=== PATIENT | female | born 1980 | race Two or more races ===

== ENCOUNTER 2020-01-07 14:07 | Outpatient (REF) | payer MEDICAID, SELFPAY | END 2020-01-07 14:08 | disposition home or self-care (01) | LOC: HO.LAB 14:07 | PROVIDERS: Visit Provider Internal Medicine | DX: Z20.828 Contact with and (suspected) exposure to other viral communicable diseases (principal) | CPT/HCPCS: U0003 ==

== ENCOUNTER 2020-11-20 09:57 | Outpatient (REF) | payer MEDICAID, SELFPAY | END 2020-11-20 09:58 | disposition home or self-care (01) | LOC: HO.LAB 09:57 | PROVIDERS: Visit Provider Internal Medicine | DX: Z20.822 Contact with and (suspected) exposure to COVID-19 (principal) | CPT/HCPCS: C9803; U0003; U0005 ==

== ENCOUNTER 2021-04-30 17:30 | Emergency (ER) | payer OTHER, SELFPAY ==
[2021-04-30 17:34] VITALS: BP 188/87; PULSE 67; RESP 18; TEMP 36.6; O2SAT 99; BMI 43.9
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
[2021-04-30 19:33] VITALS: BP 157/98; PULSE 70; RESP 18; TEMP 36.4; O2SAT 96
[2021-04-30] MEDS: Cyclobenzaprine HCl 10 MG TABLET PO (19:43)
[2021-04-30] MEDS: NaPROXEN 500 MG TABLET PO (19:43)
== END 2021-04-30 20:04 | disposition home or self-care (01) ==
PROVIDERS: Emergency Provider Internal Medicine
DX: S39.012A Strain of muscle, fascia and tendon of lower back, initial encounter (principal); V43.52XA Car driver injured in collision with other type car in traffic accident, initial encounter; Y93.9 Activity, unspecified; Y92.410 Unspecified street and highway as the place of occurrence of the external cause; Y99.9 Unspecified external cause status; Z79.899 Other long term (current) drug therapy
CPT/HCPCS: 99283

== ENCOUNTER 2022-02-02 12:27 | Emergency (ER) | payer MEDICAID, SELFPAY ==
--- NOTE | ~2022-02-02 | CT_ITS ---
EXAMINATION: CT HEAD WITHOUT CONTRAST CLINICAL INFORMATION: Headache COMPARISON: None TECHNIQUE: Contiguous axial imaging was performed from the skull base to vertex without intravenous administration of contrast. This CT examination was performed using dose optimization techniques as appropriate, variously including the following: *Automated exposure control *Adjustment of mA and/or kV according to patient size (this includes techniques or standardized protocols for targeted exams where dose is matched to indication/reason for exam; i.e. extremities or head) *Use of iterative reconstruction technique DLP: 733 mGy-cm FINDINGS: There is no midline shift. There is no mass effect. There is no hemorrhage. The basal cisterns appear patent. The posterior fossa is grossly within normal limits. There is no extra-axial collection. There are scattered areas of decreased attenuation in the white matter in this young patient.. This could represent white matter ischemic change Review of the bone windows does not demonstrate sinus disease. CT/CT head/brain wo IV con IMPRESSION: There is no acute finding here. There are however several areas of decreased attenuation throughout the white matter in this young patient. Recommend MRI to fully evaluate.
[2022-02-02 12:34] VITALS: BP 148/83; PULSE 73; RESP 20; TEMP 36.3; O2SAT 100; BMI 45.3
--- NOTE | 2022-02-02 13:07 | ED.HA ---
HPI - Headache General Chief Complaint: Headache Stated Complaint: CASTELLANO, Tingling L arm/hand Time Seen by Provider: 02/02/22 13:00 Source: patient Mode of arrival: ambulatory Limitations: no limitations History of Present Illness HPI Narrative: Robert is a 41 yo female with a PMHx of HTN who presents to the emergency department today with a CC of a posterior headache with left arm numbness and tingling that started around 10:45 am this morning. She says that she was at her child's school for a meeting when symptoms started suddenly. She says that her headache is throbbing in quality, it comes and goes, and she rates it as a 10/10. She says the pain is mostly towards the back of her head but radiates towards her temples. She has never had a headache like this before. She also endorses some nausea, shortness of breath and chest tightness, but denies chest pain, fevers, chills, vomiting, diarrhea, constipation, congestion, cough, or visual changes. She denies trauma. She admits that she has had symptoms like this many years ago which she thinks were the result of a panic attack. She came to the emergency department today because she was worried about a stroke. At this time the numbness and tingling has improved without intervention she has not taken anything for the pain. MD elicited complaint: headache Pertinent past history: hypertension Onset (ago): hour(s) (3) Onset description: suddenly Location: diffuse Severity: severe Pain scale (0-10): 10 Quality & Timing: throbbing Exacerbating factors: none Relieving factors: nothing Context: other (at child's school in meeting) Associated symptoms: nausea Related Data Previous Rx's Medication Instructions Recorded cyclobenzaprine 10 mg tablet 10 mg PO Q8H #20 tabs 04/30/21 naproxen 500 mg tablet (Naprosyn) 500 mg PO BID PRN pain #30 tabs 04/30/21 Allergies Allergy/AdvReac Type Severity Reaction Status Date / Time cherries Allergy Unknown Uncoded 05/14/19 00:00 Horses Allergy Unknown Uncoded 05/14/19 00:00 SHELLFISH Allergy Unknown HIVES Uncoded 11/21/19 18:07 shellfish Allergy Unknown Uncoded 05/14/19 00:00 Review of Systems Review of Systems: Review of systems: General: Patient denies any fever chills recent illness or falls Musculoskeletal: Denies back pain or body aches or other injuries HEENT: denies headache, runny nose, ear pain Respiratory: denies shortness of breath, cough Cardiovascular: no chest pain or palpitations : denies dysuria, frequency Abdomen: no nausea vomiting denies abdominal pain Extremities: no swelling, no pain Skin: no diaphoresis Yes all other systems are reviewed and are negative PMFSH Past Medical History Medical History No known health problems Social History Social History Advance Directives: No Physical Exam Vital Signs: Vital Signs: Last Vital Signs Temp 97.8 F 02/02/22 13:42 Pulse 72 02/02/22 13:42 Resp 19 02/02/22 13:42 BP 141/81 H 02/02/22 13:42 Pulse Ox 98 02/02/22 13:42 O2 Del Method 02/02/22 13:42 BMI result Body Mass Index 45.3 Neurological exam: CN II- XII tested. Patient is alert and oriented to person place and time. Patient has no dysphagia or dysarthia, denies good vision in all four vision perkins no nystagmus on exam, good strength to upper and lower extremities with normal reflexes to brachioradialis, wrist, patella and achilles. Negative romberg, good finger to nose and heel to razo. General: Well-appearing well-nourished in no signs of distress HEENT: Normocephalic atraumatic Neck: No signs of JVD, no masses no tenderness or lymphadenopathy Cardiovascular: Regular rate and rhythm Respiratory: Clear to auscultation bilaterally Abdomen: Soft nontender no masses Extremities: Normal pedal pulses no signs of edema Skin: Dry warm no rashes Back: No tenderness full ROM Medications Administered Discontinued Medications Generic Name Dose Route Start Last Admin Trade Name Freq PRN Reason Stop Dose Admin Diphenhydramine HCl 25 mg 02/02/22 14:47 02/02/22 14:54 Diphenhydramine Hcl 50 Mg/Ml Vial IVPUSH 02/02/22 14:48 25 mg ONCE ONE Administration Sodium Chloride 1,000 mls @ 999 mls/hr 02/02/22 13:15 02/02/22 13:26 Ns IV 02/02/22 14:15 999 mls/hr .Q1H1M LUI Administration Ketorolac Tromethamine 15 mg 02/02/22 13:09 02/02/22 13:26 Ketorolac Tromethamine 15 Mg/Ml Vial IVPUSH 02/02/22 13:10 15 mg ONCE ONE Administration Metoclopramide HCl 10 mg 02/02/22 14:47 02/02/22 14:53 Metoclopramide Hcl 10 Mg/2 Ml Vial IVPUSH 02/02/22 14:48 10 mg ONCE ONE Administration Ondansetron HCl 4 mg 02/02/22 14:35 02/02/22 14:53 Ondansetron Hcl 4 Mg/2 Ml Vial IVPUSH 02/02/22 14:36 4 mg ONCE ONE Administration MDM - Headache MDM Narrative Medical decision making narrative: 41 year old female with headache while at school with her daughter. She has had the same thing related to anxiety. I will give her tylenol toradol fluids and check a CT And labs. She looks otherwise well Patient with no relief with toradol fluids and was given reglan benadryl. Still no relief. Crying in the room CT and labs are all normal. I will try haldol, benadryl decadron and versed. 1600 I will sign out pending medication effect and disposition. Differential Diagnosis Differential diagnosis: Likely migraine, tension headache and subarachnoid hemorrhage Medical Records Attestation: I reviewed the patient's medical records. Lab Data Attestation: I reviewed the patient's lab results. Result diagrams: 02/02/22 13:22 02/02/22 13:22 Labs: Lab Results 02/02/22 02/02/22 Range/Units 13:22 13:22 WBC 7.0 (4.8-10.8) X10*3/uL RBC 4.74 (4.20-5.50) X10*6/uL Hgb 11.6 L (12.0-16.0) g/dl Hct 37.1 (37.0-47.0) % MCV 78.3 L (80.0-98.0) fL MCH 24.5 L (27.0-33.0) pg MCHC 31.3 (31.0-35.0) g/dl RDW 13.7 (11.0-16.0) % Plt Count 266 (160-400) X10*3/uL MPV 8.6 L (9.4-12.3) fL Immature Gran % (Auto) 0.1 (0.0-0.4) % Neut % (Auto) 62.6 (45-73) % Lymph % (Auto) 27.5 (20-40) % [place] % (Auto) 6.7 (2-11) % Eos % (Auto) 2.8 (0-4) % Baso % (Auto) 0.3 (0-2) % Lymph # (Auto) 1.9 (1.2-4.9) X10*3/uL [place] # (Auto) 0.5 (0.1-1.2) X10*3/uL Eos # (Auto) 0.2 (0.0-0.4) X10*3/uL Baso # (Auto) 0.0 (0.0-0.2) X10*3/uL Abs Immat Gran (auto) 0.01 (0.00-0.03) X10*3/uL Absolute Neuts (auto) 4.4 (2.0-8.3) x10*3/uL Absolute Nucleated RBC 0.000 (0.0-0.012) X10*3/uL Nucleated RBC % (auto) 0.0 (0.0-0.2) /100WBC Sodium 137 (135-145) mmol/L Potassium 3.9 (3.3-5.1) mmol/L Chloride 101 (96-108) mmol/L Carbon Dioxide 27 (22-29) mmol/L Anion Gap 13 (12-20) BUN 14 (9-16) mg/dL Creatinine 0.75 (0.5-1.4) mg/dL Estim Creat Clear Calc 127.2 Estimated GFR > 60 Random Glucose 93 (60-115) mg/dL Calcium 9.5 (8.4-10.2) mg/dL Discharge Plan Discharge Clinical Impression: Headache, Anxiety Patient Disposition: Still a Patient Instructions: Acute Headache (ED), Anxiety (ED) Additional Instructions: Please call to follow up with your doctor. If you have any other concerns please return to the ED. Prescriptions: No Action cyclobenzaprine 10 mg tablet 10 mg PO Q8H Qty: 20 0RF naproxen [Naprosyn] 500 mg tablet 500 mg PO BID PRN (Reason: pain) Qty: 30 0RF
--- NOTE | 2022-02-02 13:09 | ECG_ITS ---
Test Reason : PALPITATIONS Blood Pressure : / mmHG Vent. Rate : 070 BPM Atrial Rate : 070 BPM P-R Int : 156 ms QRS Dur : 100 ms QT Int : 404 ms P-R-T Axes : 051 033 029 degrees QTc Int : 436 ms Normal sinus rhythm Incomplete right bundle branch block Abnormal ECG No previous ECGs available Referred By: Bacilio Esteves Electronically Signed By:TERI BOWIE MD
[2022-02-02 13:26] LABS: MANUAL DIFF FLAG NO
[2022-02-02] MEDS: 0.9 % Sodium Chloride 1,000 ML 999 ML IV (13:26)
[2022-02-02] MEDS: Ketorolac Tromethamine 15 MG/ML VIAL IVPUSH (13:26)
[2022-02-02 13:28] LABS: Basophils Percent Auto 0.3 % (0-2); Eosinophils Absolute Auto 0.2 X10*3/uL (0.0-0.4); Eosinophils Percent Auto 2.8 % (0-4); Hematocrit 37.1 % (37.0-47.0); Hemoglobin 11.6 g/dl (12.0-16.0); Imm Gran Abs Auto 0.01 X10*3/uL (0.00-0.03); Imm Gran Pct Auto 0.1 % (0.0-0.4); Lymphocytes Absolute Auto 1.9 X10*3/uL (1.2-4.9); Lymphocytes Percent Auto 27.5 % (20-40); Mean Corpuscular HGB Conc 31.3 g/dl (31.0-35.0); Mean Corpuscular Hemoglobin 24.5 pg (27.0-33.0); Mean Corpuscular Volume 78.3 fL (80.0-98.0); Mean Platelet Volume 8.6 fL (9.4-12.3); Monocytes Absolute Auto 0.5 X10*3/uL (0.1-1.2); Monocytes Percent Auto 6.7 % (2-11); Neutrophils Absolute Auto 4.4 x10*3/uL (2.0-8.3); Neutrophils Percent Auto 62.6 % (45-73); Platelet Count 266 X10*3/uL (160-400); Red Blood Count 4.74 X10*6/uL (4.20-5.50); Red Cell Distribution Width 13.7 % (11.0-16.0)
[2022-02-02 13:42] VITALS: BP 141/81; PULSE 72; RESP 19; TEMP 36.6; O2SAT 98
[2022-02-02 13:42] LABS: Anion Gap 13 (12-20); Blood Urea Nitrogen 14 mg/dL (9-16); Calcium 9.5 mg/dL (8.4-10.2); Carbon Dioxide 27 mmol/L (22-29); Chloride 101 mmol/L (96-108); Creatinine Clr Calc Pharmacy 127.2; Estimated Glomerular Filt Rate > 60; Glucose Random 93 mg/dL (60-115); Potassium 3.9 mmol/L (3.3-5.1); Sodium 137 mmol/L (135-145)
[2022-02-02] MEDS: Metoclopramide HCl 10 MG/2 ML VIAL IVPUSH (14:53)
[2022-02-02] MEDS: ondansetron HCL 4 MG/2 ML VIAL IVPUSH (14:53)
[2022-02-02] MEDS: diphenhydrAMINE HCL 50 MG/ML VIAL 25 MG IVPUSH ×2 (14:54→15:51)
[2022-02-02] MEDS: dexAMETHasone sod phosphate 10 MG/ML VIAL IVPUSH (15:51)
[2022-02-02] MEDS: Haloperidol Lactate 5 MG/ML VIAL IVPUSH (15:52)
[2022-02-02] MEDS: Midazolam HCl/PF 2 MG/2 ML VIAL 1 MG IVPUSH (15:52)
[2022-02-02] MEDS: Acetaminophen 325 MG TABLET 650 MG PO (15:54)
[2022-02-02 16:15] VITALS: BP 169/77; PULSE 78; RESP 18; TEMP 36.8; O2SAT 98
== END 2022-02-02 17:43 | disposition still patient (30) ==
PROVIDERS: Emergency Provider Student in an Organized Health Care Education/Training Program; PCP Nurse Practitioner Family
DX: R51.9 Headache, unspecified (principal); F41.9 Anxiety disorder, unspecified
CPT/HCPCS: 36415; 70450; 80048; 85025; 93005; 96361; 96374; 96375; 96376; 99284; 99285; J1100; J1200; J1885; J2250; J2405; J2765

== ENCOUNTER 2022-03-14 11:22 | Outpatient (REF) | payer MEDICAID, SELFPAY ==
--- NOTE | ~2022-03-14 | XR_ITS ---
EXAMINATION: XR CHEST CLINICAL INFORMATION: Hypertension COMPARISON: None TECHNIQUE: 2 views of the chest were obtained. FINDINGS: The cardiomediastinal silhouette is within normal limits. The lungs are well expanded. Mild central vascular prominence. No overt pulmonary edema. There is no focal consolidation, or effusion. No pneumothorax. No acute osseous abnormality. XR/XR chest 2V IMPRESSION: Mild central vascular prominence without overt pulmonary edema.
== END 2022-03-14 11:23 | disposition home or self-care (01) ==
LOC: HO.XRAY 11:22
PROVIDERS: Visit Provider Emergency Medicine
DX: I10 Essential (primary) hypertension (principal)
CPT/HCPCS: 71046

== ENCOUNTER 2022-09-28 14:58 | Emergency (ER) | payer MEDICAID, SELFPAY ==
[2022-09-28 15:05] VITALS: BP 146/78
--- NOTE | 2022-09-28 15:06 | ED_ITS ---
HPI - General Adult General Chief complaint: Chest Pain Stated complaint: HIGH BP,HEADACH,SEEN RECENTLY @[facility] PER EMS Time Seen by Provider: 09/28/22 21:18 Source: patient Mode of arrival: EMS History of Present Illness HPI narrative: 41-year-old female with known high blood pressure presents via ambulance for her 2nd episode of chest pressure since this morning, she experienced similar chest pressure this morning while on her way to work denies that it had anything to do with her anxiety and had a complete workup at [facility] and was then discharged. Patient states that she then experienced chest pressure once again while at home resting and each time she did note that her blood pressure was very high . EN route EMS did give patient nitro and aspirin with good affect. Patient states she is recently had her losartan increased from 25-50 mg and has a follow-up primary care provider appointment on October 13. She denies any alcohol use or other prescription medications. Related Data Previous Rx's Medication Instructions Recorded cyclobenzaprine 10 mg tablet 10 mg PO Q8H #20 tabs 04/30/21 naproxen 500 mg tablet (Naprosyn) 500 mg PO BID PRN pain #30 tabs 04/30/21 Allergies Allergy/AdvReac Type Severity Reaction Status Date / Time cherries Allergy Unknown Unknown Uncoded 09/28/22 15:42 Horses Allergy Unknown Unknown Uncoded 09/28/22 15:42 SHELLFISH Allergy Unknown HIVES Uncoded 11/21/19 18:07 shellfish Allergy Unknown Unknown Uncoded 09/28/22 15:42 Review of Systems 2 Review of Systems: Pertinent positives and negatives as stated in HPI PMFSH Past Medical History Source: nursing notes reviewed Medical History No known health problems Social History Social History Alcohol intake: never Smoked in Last 30 Days: No Use of substances other than those prescribed or required for medical reasons: No Advance Directives: No Advance Directives Information Provided: No Patient : No Physical Exam ED Vital Signs: Vital Signs - 24 hr 09/28/22 15:42 09/28/22 20:31 Temperature 97.1 F 97.7 F Pulse Rate 69 62 Respiratory Rate 16 19 Blood Pressure 152/78 H 145/69 H Pulse Oximetry 96 99 Oxygen Delivery Method Room Air Room Air BMI result Body Mass Index 46.3 VITAL SIGNS: Reviewed. GENERAL: Elevated BMI, Well developed, well nourished, in no acute distress. HEAD: Normocephalic/atraumatic EYES: PERRLA, EOMI EARS: Ext canals without abnormality NOSE: Nares patent bilateral OROPHARYNX: no oral lesions noted, posterior pharynx clear NECK: Supple, no adenopathy LUNGS: Normal breath sounds. No adventitious sounds or accessory muscle use. S pO2<99> CARDIOVASCULAR: Regular rate and rhythm without noted murmurs, no JVD or lower extremity edema. ABDOMEN: Soft, non-tender, non-distended with bowel sounds. MUSCULOSKELETAL: No tenderness, deformities, or effusions noted on gross inspection. EXTREMITIES: No cyanosis, clubbing or edema. SKIN: Inspection of the skin reveals no rashes NEUROLOGIC: Alert and oriented x 4. Strength and sensation to light touch were grossly intact x 4, no facial asymmetry, no pronator drift, cranial nerves 2-12 are grossly intact.. Course Course Course Narrative: RME - 41 yo female with history of HTN on Losartan 50 mg daily (taken today) who presents to the ER via EMS who presents to the ER for acute onset of chest pressure and headache that started around 2pm. She was seen at [facility] ER this morning for the same associated with elevated BP. Had improvement in BP and normal labs so was discharged. BP for EMS 180/110. given ASA, nitro SL. EKG with incomplete RBBB and q-waves per EMS. Plan: EKG and labs Medical Decision Making Medical Decision Making MDM Narrative: 41-year-old female with history and clinical presentation, DDX: Musculoskeletal, anxiety, cardiopulmonary etiology. I reviewed all investigations and hematologic indices are consistent with chronically stable microcytic anemia without leukocytosis or left shift and there is no thrombocytopenia. Chemistry indices are grossly within normal limits without evidence of CATHI, electrolyte abnormalities or liver enzyme derangements. Serial troponins are undetectable and no acute ischemic changes on the EKG. Patient does have a significantly elevated BMI within underlying high blood pressure as well as history of some mild anxiety. My interpretation is that she has likely experienced a combination of anxiety but this is also potentially contributed by the use of NSAIDs. I did recommend to the patient that she increase her losartan to 75 mg a day and continue to monitor dietary salt use. Patient has a follow-up appoint with her primary care provider. Differential Diagnosis Differential Diagnoses: The differential diagnosis associated with the presentation includes Please see the discussion above Admission/Observation Consideration of admission/observation: Escalation of care including admission/observation considered Please see the discussion above Lab Data MDM Lab Attestation statement: I reviewed the patient's lab results. Please see the discussion above 09/28/22 15:41 09/28/22 15:41 Labs: Lab Results 09/28/22 09/28/22 09/28/22 Range/Units 15:41 15:41 15:41 WBC 7.0 (4.8-10.8) X10*3/uL RBC 4.40 (4.20-5.50) X10*6/uL Hgb 10.8 L (12.0-16.0) g/dl Hct 35.1 L (37.0-47.0) % MCV 79.8 L (80.0-98.0) fL MCH 24.5 L (27.0-33.0) pg MCHC 30.8 L (31.0-35.0) g/dl RDW 13.2 (11.0-16.0) % Plt Count 297 (160-400) X10*3/uL MPV 9.2 L (9.4-12.3) fL Immature Gran % (Auto) 0.4 (0.0-0.4) % Neut % (Auto) 62.6 (45-73) % Lymph % (Auto) 28.1 (20-40) % Lucas % (Auto) 5.9 (2-11) % Eos % (Auto) 2.4 (0-4) % Baso % (Auto) 0.6 (0-2) % Lymph # (Auto) 2.0 (1.2-4.9) X10*3/uL Lucas # (Auto) 0.4 (0.1-1.2) X10*3/uL Eos # (Auto) 0.2 (0.0-0.4) X10*3/uL Baso # (Auto) 0.0 (0.0-0.2) X10*3/uL Abs Immat Gran (auto) 0.03 (0.00-0.03) X10*3/uL Absolute Neuts (auto) 4.4 (2.0-8.3) x10*3/uL Absolute Nucleated RBC 0.000 (0.0-0.012) X10*3/uL Nucleated RBC % (auto) 0.0 (0.0-0.2) /100WBC Sodium 141 (135-145) mmol/L Potassium 3.8 (3.3-5.1) mmol/L Chloride 107 (96-108) mmol/L Carbon Dioxide 25 (22-29) mmol/L Anion Gap 13 (12-20) BUN 11 (9-16) mg/dL Creatinine 0.79 (0.5-1.4) mg/dL Estim Creat Clear Calc 122.1 Estimated GFR > 60 Random Glucose 107 (60-115) mg/dL Calcium 9.8 (8.4-10.2) mg/dL Magnesium 2.0 (1.6-2.6) mg/dL Total Bilirubin 0.5 (0.0-1.0) mg/dL Direct Bilirubin 0.1 (0.0-0.5) mg/dL AST 13 (5-31) U/L ALT 12 (0-31) U/L Alkaline Phosphatase 85 (39-117) U/L Troponin I High Sens < 2.7 (<3.5-17.0) ng/L Total Protein 7.0 (6.5-8.0) g/dL Albumin 3.9 (3.5-5.0) g/dL 09/28/22 Range/Units 19:42 WBC (4.8-10.8) X10*3/uL RBC (4.20-5.50) X10*6/uL Hgb (12.0-16.0) g/dl Hct (37.0-47.0) % MCV (80.0-98.0) fL MCH (27.0-33.0) pg MCHC (31.0-35.0) g/dl RDW (11.0-16.0) % Plt Count (160-400) X10*3/uL MPV (9.4-12.3) fL Immature Gran % (Auto) (0.0-0.4) % Neut % (Auto) (45-73) % Lymph % (Auto) (20-40) % Lucas % (Auto) (2-11) % Eos % (Auto) (0-4) % Baso % (Auto) (0-2) % Lymph # (Auto) (1.2-4.9) X10*3/uL Lucas # (Auto) (0.1-1.2) X10*3/uL Eos # (Auto) (0.0-0.4) X10*3/uL Baso # (Auto) (0.0-0.2) X10*3/uL Abs Immat Gran (auto) (0.00-0.03) X10*3/uL Absolute Neuts (auto) (2.0-8.3) x10*3/uL Absolute Nucleated RBC (0.0-0.012) X10*3/uL Nucleated RBC % (auto) (0.0-0.2) /100WBC Sodium (135-145) mmol/L Potassium (3.3-5.1) mmol/L Chloride (96-108) mmol/L Carbon Dioxide (22-29) mmol/L Anion Gap (12-20) BUN (9-16) mg/dL Creatinine (0.5-1.4) mg/dL Estim Creat Clear Calc Estimated GFR Random Glucose (60-115) mg/dL Calcium (8.4-10.2) mg/dL Magnesium (1.6-2.6) mg/dL Total Bilirubin (0.0-1.0) mg/dL Direct Bilirubin (0.0-0.5) mg/dL AST (5-31) U/L ALT (0-31) U/L Alkaline Phosphatase (39-117) U/L Troponin I High Sens < 2.7 (<3.5-17.0) ng/L Total Protein (6.5-8.0) g/dL Albumin (3.5-5.0) g/dL Independent Interpretation I performed an independent interpretation of an: EKG Interpretation: Normal sinus rhythm, HR-75, no STEMI, [place]/QRS/QTC is within normal limits External Record Review External record reviewed: Outpatient record and Prior outpatient labs Chronic Conditions Patient?s care impacted by: Hypertension Discharge Plan Discharge Clinical Impression: Chest pain, Uncontrolled hypertension Patient Disposition: Home, Self-Care Instructions: Chest Pain (ED), DASH Eating Plan (ED), Hypertension (ED) Additional Instructions: 1. Reanude todos los medicamentos caseros seg?n lo recetado, aumente diaz losart?n de 50 mg diarios a 75 mg diarios. 2. Es importante que se d? cuenta de que el ibuprofeno, Motrin, Aleve, Naprosyn pueden aumentar diaz presi?n arterial y deben evitarse cuando sea posible. 3. Seguimiento con diaz proveedor de atenci?n primaria. Regrese a la segun de emergencias si los s?ntomas empeoran. 1. Resume all home medications as prescribed, increase your losartan from 50 mg daily to 75 mg daily. 2. It is important for you to realize that ibuprofen, Motrin, Aleve, Naprosyn can increase your blood pressure and should be avoided when possible. 3. Follow-up with your primary care provider. Return to the ER for any worsening symptoms. Prescriptions: No Action cyclobenzaprine 10 mg tablet 10 mg PO Q8H Qty: 20 0RF naproxen [Naprosyn] 500 mg tablet 500 mg PO BID PRN (Reason: pain) Qty: 30 0RF Referrals: [facility] [Primary Care Provider] - Print Language: Kyrgyz
--- NOTE | 2022-09-28 15:07 | ECG_ITS ---
Test Reason : HYPERTENSION Blood Pressure : / mmHG Vent. Rate : 075 BPM Atrial Rate : 075 BPM P-R Int : 150 ms QRS Dur : 094 ms QT Int : 384 ms P-R-T Axes : 029 026 036 degrees QTc Int : 428 ms Normal sinus rhythm Normal ECG When compared to the previous EKG of No significant changes seen Referred By: Generic ED Physician Electronically Signed By:TONIO WANG MD
[2022-09-28 15:42] VITALS: BP 152/78; PULSE 69; RESP 16; TEMP 36.2; O2SAT 96; BMI 46.3
[2022-09-28 15:47] LABS: MANUAL DIFF FLAG NO
[2022-09-28 15:57] LABS: Basophils Percent Auto 0.6 % (0-2); Eosinophils Absolute Auto 0.2 X10*3/uL (0.0-0.4); Eosinophils Percent Auto 2.4 % (0-4); Hematocrit 35.1 % (37.0-47.0); Hemoglobin 10.8 g/dl (12.0-16.0); Imm Gran Abs Auto 0.03 X10*3/uL (0.00-0.03); Imm Gran Pct Auto 0.4 % (0.0-0.4); Lymphocytes Percent Auto 28.1 % (20-40); Mean Corpuscular HGB Conc 30.8 g/dl (31.0-35.0); Mean Corpuscular Hemoglobin 24.5 pg (27.0-33.0); Mean Corpuscular Volume 79.8 fL (80.0-98.0); Mean Platelet Volume 9.2 fL (9.4-12.3); Monocytes Absolute Auto 0.4 X10*3/uL (0.1-1.2); Monocytes Percent Auto 5.9 % (2-11); Neutrophils Absolute Auto 4.4 x10*3/uL (2.0-8.3); Neutrophils Percent Auto 62.6 % (45-73); Platelet Count 297 X10*3/uL (160-400); Red Cell Distribution Width 13.2 % (11.0-16.0)
[2022-09-28 16:49] LABS: Troponin-I High Sensitivity < 2.7 ng/L (<3.5-17.0)
[2022-09-28 16:52] LABS: Alanine Aminotransferase 12 U/L (0-31); Albumin Level 3.9 g/dL (3.5-5.0); Alkaline Phosphatase 85 U/L (39-117); Anion Gap 13 (12-20); Aspartate Amino Transferase 13 U/L (5-31); Bilirubin Direct 0.1 mg/dL (0.0-0.5); Bilirubin Total 0.5 mg/dL (0.0-1.0); Blood Urea Nitrogen 11 mg/dL (9-16); Calcium 9.8 mg/dL (8.4-10.2); Carbon Dioxide 25 mmol/L (22-29); Chloride 107 mmol/L (96-108); Creatinine Clr Calc Pharmacy 122.1; Estimated Glomerular Filt Rate > 60; Glucose Random 107 mg/dL (60-115); Potassium 3.8 mmol/L (3.3-5.1); Sodium 141 mmol/L (135-145)
[2022-09-28 20:22] LABS: Troponin-I High Sensitivity < 2.7 ng/L (<3.5-17.0)
[2022-09-28 20:31] VITALS: BP 145/69; PULSE 62; RESP 19; TEMP 36.5; O2SAT 99
== END 2022-09-28 22:37 | disposition home or self-care (01) ==
PROVIDERS: Physician Assistant; Emergency Provider Student in an Organized Health Care Education/Training Program
DX: R07.9 Chest pain, unspecified (principal); I10 Essential (primary) hypertension
CPT/HCPCS: 36415; 80048; 80076; 83735; 84484; 85025; 93005; 99283; 99285

== ENCOUNTER → 2022-09-28 15:07 | Outpatient (BNV) | payer MEDICAID, SELFPAY | PROVIDERS: Emergency Provider Student in an Organized Health Care Education/Training Program; Visit Provider Internal Medicine Cardiovascular Disease | DX: I10 Essential (primary) hypertension (principal) | CPT/HCPCS: 93010 ==

== ENCOUNTER 2022-10-03 14:54 | Emergency (ER) | payer MEDICAID, SELFPAY ==
--- NOTE | ~2022-10-03 | XR_ITS ---
EXAMINATION: XR CHEST CLINICAL INFORMATION: Chest pain COMPARISON: Prior chest March 2022 TECHNIQUE: Frontal view of the chest was obtained. FINDINGS: No significant abnormality is noted involving the heart, lungs, mediastinum, bony thorax or soft tissues. XR/XR chest 1V IMPRESSION: Unremarkable examination.
--- NOTE | 2022-10-03 14:59 | ECG_ITS ---
Test Reason : CHEST PRESSURE Blood Pressure : / mmHG Vent. Rate : 074 BPM Atrial Rate : 074 BPM P-R Int : 152 ms QRS Dur : 096 ms QT Int : 376 ms P-R-T Axes : 043 028 026 degrees QTc Int : 417 ms Normal sinus rhythm with sinus arrhythmia Possible Left atrial enlargement RSR' or QR pattern in V1 suggests right ventricular conduction delay Borderline ECG When compared with ECG of 28-SEP-2022 15:25, No significant change was found Referred By: Vicki Molina Electronically Signed By:BRENDAN ROLDAN
--- NOTE | 2022-10-03 15:03 | ED.GENADULT ---
HPI - General Adult General Chief complaint: Chest Pain Stated complaint: chest pressure r hand numbness Time Seen by Provider: 10/03/22 23:25 Source: patient, RN notes reviewed and old records reviewed Mode of arrival: ambulatory Limitations: no limitations History of Present Illness HPI narrative: 41-year-old female with past medical history significant for hypertension, obesity presents for evaluation of chest pain. Patient reports that she was on her way home from work when she started to feel pressure in her chest, feel like her heart was racing and numbness in her right hand. Patient was seen here on 09/28/2022 for similar complaints. It was felt that her symptoms were at least partially related to anxiety The patient reports that this feels similar and the both and says the patient was at or leaving work when her symptoms started She also reports that she has 2 younger children at home and 1 is autistic which makes her stress test well She denies any history of coronary artery disease The patient reports her symptoms lasted a few hours before resolving Related Data Previous Rx's Medication Instructions Recorded cyclobenzaprine 10 mg tablet 10 mg PO Q8H #20 tabs 04/30/21 naproxen 500 mg tablet (Naprosyn) 500 mg PO BID PRN pain #30 tabs 04/30/21 hydroxyzine HCl 25 mg tablet 25 mg PO TID PRN anxiety #15 tabs 10/03/22 Allergies Allergy/AdvReac Type Severity Reaction Status Date / Time cherries Allergy Unknown Unknown Uncoded 09/28/22 15:42 Horses Allergy Unknown Unknown Uncoded 09/28/22 15:42 SHELLFISH Allergy Unknown HIVES Uncoded 11/21/19 18:07 shellfish Allergy Unknown Unknown Uncoded 09/28/22 15:42 Review of Systems Constitutional: Constitutional: Reports as per HPI, Denies chills, Denies fever(s) and Denies headache(s) ENT: Denies headache(s) Cardiovascular: Cardiovascular: Reports chest pain, Reports rapid heart rate and Reports dyspnea Respiratory: Respiratory: Denies cough and Reports dyspnea Gastrointestinal: Gastrointestinal: Denies abdominal pain, Denies constipation and Denies vomiting Genitourinary: Genitourinary: Denies dysuria Musculoskeletal: Musculoskeletal: Reports numbness Neurologic: Denies headache(s), Denies focal weakness and Reports numbness PMFSH Past Medical History Medical History No known health problems Social History Social History Alcohol intake: never Advance Directives: No Advance Directives Information Provided: Yes Physical Exam ED Vital Signs: Vital Signs - 24 hr 10/03/22 15:56 10/03/22 23:28 Temperature 98.1 F Pulse Rate 85 67 Respiratory Rate 18 18 Blood Pressure 132/77 134/77 Pulse Oximetry 98 98 Oxygen Delivery Method Room Air Room Air BMI result Body Mass Index 45.4 Const General: healthy appearing, comfortable, no acute distress, alert and awake Nutritional Appearance: well nourished Orientation/consciousness: patient oriented x3 HENMT Head: Yes normocephalic and Yes atraumatic Eyes Eyelids: Yes eyelids normal Conjunctivae: conjunctivae normal Sclerae: sclerae normal Corneas: corneas normal Pupils: Equal, round and reactive pupils present EOM: EOMs intact bilaterally Neck Neck: Yes full ROM Resp Effort & Inspection: normal respiratory effort, able to speak in complete sentences, no audible wheezes and not labored Auscultation: clear to auscultation bilaterally Cardio Rate: regular rate Rhythm: regular rhythm Skin General skin exam: no rashes or lesions noted and elasticity normal Neuro General: patient oriented x3 Cranial nerves: Yes Equal, round and reactive pupils present and Yes Bilaterally intact EOM present Cognition (Neuro): normal cognition Extrem Other: Moving all extremities well without any obvious deformities Course Course Course Narrative: This is an RME: Additional HPI, ROS, PE not included below will be deferred to primary provider. 41-year-old female presents with substernal chest pain with associated right arm numbness and tingling for the past few hours, pain started at work while she was on break. Reports pain is severe. With some associated shortness of breath. Patient reports a similar episode like this last Monday. Patient denies fevers, chills, sick contacts, nausea, vomiting, abdominal pain. No recent travel, nonsmoker, not on control. PERC - Plan EKG, labs Medical Decision Making Medical Decision Making MDM Narrative: This is the patient's 2nd visit in the last 2 weeks for similar complaints. She again had a full workup including labs, chest x-ray, EKG all which was unremarkable. The patient is currently asymptomatic, vital signs are stable. I had a lengthy discussion the patient today agree the patient's symptoms are likely attributed to anxiety. Will try the patient on p.r.n. hydroxyzine and she reports that she has follow-up with her doctor in 10 days Differential Diagnosis Differential Diagnoses: The differential diagnosis associated with the presentation includes Anxiety Chest pain PE less likely Plan pneumonia Bronchitis Viral syndrome Admission/Observation Consideration of admission/observation: Escalation of care including admission/observation considered Patient's 2nd visit for chest pain, however her EKG was unchanged, troponin is still negative, vital signs remained stable, therefore admission not warranted at this time Lab Data MDM Lab Attestation statement: I reviewed the patient's lab results. No leukocytosis or left shift,. Very mild anemia with a hemoglobin 11.7 hematocrit 37.6. Patient's MCV just below normal, so is technically a microcytic anemia. No significant electrolyte or chemistry abnormalities. Troponin negative 10/03/22 16:37 10/03/22 16:37 Labs: Lab Results 10/03/22 10/03/22 10/03/22 Range/Units 16:37 16:37 16:38 WBC 9.3 (4.8-10.8) X10*3/uL RBC 4.73 (4.20-5.50) X10*6/uL Hgb 11.7 L (12.0-16.0) g/dl Hct 37.6 (37.0-47.0) % MCV 79.5 L (80.0-98.0) fL MCH 24.7 L (27.0-33.0) pg MCHC 31.1 (31.0-35.0) g/dl RDW 13.2 (11.0-16.0) % Plt Count 334 (160-400) X10*3/uL MPV 8.9 L (9.4-12.3) fL Immature Gran % (Auto) 0.2 (0.0-0.4) % Neut % (Auto) 67.2 (45-73) % Lymph % (Auto) 26.7 (20-40) % [place] % (Auto) 4.0 (2-11) % Eos % (Auto) 1.5 (0-4) % Baso % (Auto) 0.4 (0-2) % Lymph # (Auto) 2.5 (1.2-4.9) X10*3/uL [place] # (Auto) 0.4 (0.1-1.2) X10*3/uL Eos # (Auto) 0.1 (0.0-0.4) X10*3/uL Baso # (Auto) 0.0 (0.0-0.2) X10*3/uL Abs Immat Gran (auto) 0.02 (0.00-0.03) X10*3/uL Absolute Neuts (auto) 6.3 (2.0-8.3) x10*3/uL Absolute Nucleated RBC 0.000 (0.0-0.012) X10*3/uL Nucleated RBC % (auto) 0.0 (0.0-0.2) /100WBC Sodium 140 (135-145) mmol/L Potassium 3.8 (3.3-5.1) mmol/L Chloride 105 (96-108) mmol/L Carbon Dioxide 24 (22-29) mmol/L Anion Gap 15 (12-20) BUN 14 (9-16) mg/dL Creatinine 0.81 (0.5-1.4) mg/dL Estim Creat Clear Calc 117.8 Estimated GFR > 60 Random Glucose 112 (60-115) mg/dL Calcium 10.2 (8.4-10.2) mg/dL Magnesium 1.9 (1.6-2.6) mg/dL Total Bilirubin 0.8 (0.0-1.0) mg/dL AST 16 (5-31) U/L ALT 16 (0-31) U/L Alkaline Phosphatase 95 (39-117) U/L Troponin I High Sens < 2.7 (<3.5-17.0) ng/L B-Natriuretic Peptide (<100) pg/mL Total Protein 8.0 (6.5-8.0) g/dL Albumin 4.4 (3.5-5.0) g/dL 10/03/22 Range/Units 16:38 WBC (4.8-10.8) X10*3/uL RBC (4.20-5.50) X10*6/uL Hgb (12.0-16.0) g/dl Hct (37.0-47.0) % MCV (80.0-98.0) fL MCH (27.0-33.0) pg MCHC (31.0-35.0) g/dl RDW (11.0-16.0) % Plt Count (160-400) X10*3/uL MPV (9.4-12.3) fL Immature Gran % (Auto) (0.0-0.4) % Neut % (Auto) (45-73) % Lymph % (Auto) (20-40) % [place] % (Auto) (2-11) % Eos % (Auto) (0-4) % Baso % (Auto) (0-2) % Lymph # (Auto) (1.2-4.9) X10*3/uL [place] # (Auto) (0.1-1.2) X10*3/uL Eos # (Auto) (0.0-0.4) X10*3/uL Baso # (Auto) (0.0-0.2) X10*3/uL Abs Immat Gran (auto) (0.00-0.03) X10*3/uL Absolute Neuts (auto) (2.0-8.3) x10*3/uL Absolute Nucleated RBC (0.0-0.012) X10*3/uL Nucleated RBC % (auto) (0.0-0.2) /100WBC Sodium (135-145) mmol/L Potassium (3.3-5.1) mmol/L Chloride (96-108) mmol/L Carbon Dioxide (22-29) mmol/L Anion Gap (12-20) BUN (9-16) mg/dL Creatinine (0.5-1.4) mg/dL Estim Creat Clear Calc Estimated GFR Random Glucose (60-115) mg/dL Calcium (8.4-10.2) mg/dL Magnesium (1.6-2.6) mg/dL Total Bilirubin (0.0-1.0) mg/dL AST (5-31) U/L ALT (0-31) U/L Alkaline Phosphatase (39-117) U/L Troponin I High Sens (<3.5-17.0) ng/L B-Natriuretic Peptide < 10 (<100) pg/mL Total Protein (6.5-8.0) g/dL Albumin (3.5-5.0) g/dL Independent Interpretation I performed an independent interpretation of an: EKG and Plain X-Ray (No acute infiltrates) Interpretation: Sinus rhythm with a rate of 74 beats per minute. No significant change when compared to previous from 5 days ago Radiology Impression Discussion of test interpretation with radiology: I have reviewed the radiologist's reading. Radiologist Impression: Unremarkable chest x-ray Discharge Plan Discharge Clinical Impression: Chest pain, Anxiety Patient Disposition: Home, Self-Care Instructions: Anxiety (ED) Additional Instructions: Workup in the emergency department today was again reassuring Follow-up with your primary doctor You may take hydroxyzine as needed for any further anxiety symptoms Return for new or worsening symptoms Prescriptions: New hydroxyzine HCl 25 mg tablet 25 mg PO TID PRN (Reason: anxiety) Qty: 15 0RF No Action cyclobenzaprine 10 mg tablet 10 mg PO Q8H Qty: 20 0RF naproxen [Naprosyn] 500 mg tablet 500 mg PO BID PRN (Reason: pain) Qty: 30 0RF
[2022-10-03 15:56] VITALS: BP 132/77; PULSE 85; RESP 18; TEMP 36.7; O2SAT 98; BMI 45.4
[2022-10-03 16:43] LABS: MANUAL DIFF FLAG NO
[2022-10-03 16:47] LABS: Basophils Percent Auto 0.4 % (0-2); Eosinophils Absolute Auto 0.1 X10*3/uL (0.0-0.4); Eosinophils Percent Auto 1.5 % (0-4); Hematocrit 37.6 % (37.0-47.0); Hemoglobin 11.7 g/dl (12.0-16.0); Imm Gran Abs Auto 0.02 X10*3/uL (0.00-0.03); Imm Gran Pct Auto 0.2 % (0.0-0.4); Lymphocytes Absolute Auto 2.5 X10*3/uL (1.2-4.9); Lymphocytes Percent Auto 26.7 % (20-40); Mean Corpuscular HGB Conc 31.1 g/dl (31.0-35.0); Mean Corpuscular Hemoglobin 24.7 pg (27.0-33.0); Mean Corpuscular Volume 79.5 fL (80.0-98.0); Mean Platelet Volume 8.9 fL (9.4-12.3); Monocytes Absolute Auto 0.4 X10*3/uL (0.1-1.2); Neutrophils Absolute Auto 6.3 x10*3/uL (2.0-8.3); Neutrophils Percent Auto 67.2 % (45-73); Platelet Count 334 X10*3/uL (160-400); Red Blood Count 4.73 X10*6/uL (4.20-5.50); Red Cell Distribution Width 13.2 % (11.0-16.0); White Blood Count 9.3 X10*3/uL (4.8-10.8)
[2022-10-03 17:01] LABS: Alanine Aminotransferase 16 U/L (0-31); Albumin Level 4.4 g/dL (3.5-5.0); Alkaline Phosphatase 95 U/L (39-117); Anion Gap 15 (12-20); Aspartate Amino Transferase 16 U/L (5-31); Bilirubin Total 0.8 mg/dL (0.0-1.0); Blood Urea Nitrogen 14 mg/dL (9-16); Calcium 10.2 mg/dL (8.4-10.2); Carbon Dioxide 24 mmol/L (22-29); Chloride 105 mmol/L (96-108); Creatinine Clr Calc Pharmacy 117.8; Estimated Glomerular Filt Rate > 60; Glucose Random 112 mg/dL (60-115); Magnesium 1.9 mg/dL (1.6-2.6); Potassium 3.8 mmol/L (3.3-5.1); Sodium 140 mmol/L (135-145)
[2022-10-03 17:07] LABS: B Type Natriuretic Peptide < 10 pg/mL (<100)
[2022-10-03 17:18] LABS: Troponin-I High Sensitivity < 2.7 ng/L (<3.5-17.0)
[2022-10-03 23:28] VITALS: BP 134/77; PULSE 67; RESP 18; O2SAT 98
[2022-10-03 23:49] VITALS: BP 117/71; PULSE 77; RESP 17; TEMP 36.6; O2SAT 96
== END 2022-10-03 23:53 | disposition home or self-care (01) ==
PROVIDERS: Physician Assistant; Emergency Provider Emergency Medicine
DX: R07.9 Chest pain, unspecified (principal); F41.9 Anxiety disorder, unspecified; R06.00 Dyspnea, unspecified; I10 Essential (primary) hypertension; E66.9 Obesity, unspecified; Z68.42 Body mass index [BMI] 45.0-49.9, adult
CPT/HCPCS: 36415; 71045; 80053; 83735; 83880; 84484; 85025; 93005; 99283; 99284

== ENCOUNTER → 2022-10-03 14:59 | Outpatient (BNV) | payer MEDICAID, SELFPAY | PROVIDERS: Emergency Provider Emergency Medicine; Visit Provider Internal Medicine | DX: R07.89 Other chest pain (principal) | CPT/HCPCS: 93010 ==

== ENCOUNTER 2022-10-28 15:42 | Emergency (ER) | payer MEDICAID, SELFPAY ==
--- NOTE | ~2022-10-28 | XR_ITS ---
EXAMINATION: XR CHEST CLINICAL INFORMATION: Chest pain, aortic dissection. COMPARISON: Chest radiograph 10/03/2022. TECHNIQUE: Frontal view of the chest was obtained. FINDINGS: Stable appearance of the cardiomediastinal silhouette. No focal airspace opacity, pleural effusion or pneumothorax. No acute osseous findings. The visualized upper abdomen is within normal limits. XR/XR chest 1V IMPRESSION: 1. No acute cardiopulmonary findings. 2. No significant cardiomediastinal contour abnormality. However, if an aortic dissection is suspected, further valuation with a CTA of the chest with and without IV contrast is recommended, as radiographic examinations have extremely limited sensitivity in detection of vascular injuries.
--- NOTE | ~2022-10-28 | CT_ITS ---
EXAMINATION: CT HEAD WITHOUT CONTRAST (STROKE PROTOCOL) CLINICAL INFORMATION: Stroke protocol. headache, visual changes, right sided numbness COMPARISON: CT head 02/02/2022 TECHNIQUE: Contiguous axial imaging was performed from the skull base to vertex without intravenous administration of contrast. This CT examination was performed using dose optimization techniques as appropriate, variously including the following: *Automated exposure control *Adjustment of mA and/or kV according to patient size (this includes techniques or standardized protocols for targeted exams where dose is matched to indication/reason for exam; i.e. extremities or head) *Use of iterative reconstruction technique DLP: 688 mGy-cm FINDINGS: There is no evidence of acute intracranial hemorrhage or territorial infarction. No abnormal mass-effect or midline shift is seen. Guo to white matter differentiation is well preserved. No extra-axial fluid collections are identified. The ventricles are normal in size. There is no abnormal attenuation within the brain parenchyma. There is no osseous abnormality. Small retention cysts in the inferior left maxillary sinus CT/CT head for stroke IMPRESSION: No acute intracranial pathology. This critical result was discussed with Lorin Marshall at 4:44 PM hours on 10/28/2022. It was ascertained that the content and urgency of the report was understood at the time of direct communication.
[2022-10-28 16:11] VITALS: BP 146/92; PULSE 73; RESP 17; TEMP 35.9; O2SAT 99; BMI 45.9
--- NOTE | 2022-10-28 16:11 | ED.GENADULT ---
HPI - General Adult General Chief complaint: Neuro Symptoms/Deficit Stated complaint: numbness in R hand, head/nose Time Seen by Provider: 10/28/22 16:44 Source: patient Mode of arrival: ambulatory Limitations: no limitations History of Present Illness HPI narrative: 41 yo female with PMH of HTN not on AC therapy or OCPs mom does have hx of migraines patient notes about 20 minutes prior to arrival she was watching TV when she noted squiggly lines in the L eye and developed L parietal headache she then felt her R arm, tongue and entire mouth go numb it proceeded to cover her face and she felt like she couldn't talk. Her headache worsened this has never happened before. She now notes the numbness is gone. She still has a headache. No recent trauma, COVID, vaccines complaint: headache, numbness Onset (ago): minute(s) (20) Location: head Radiation: non-radiation Severity: moderate Quality: other (throbbing) Pain Consistency: constant Relieving factors: rest Exacerbating factors: none Associated symptoms: other (numbness) Treatments prior to arrival: other (did take her losartan [employer] ASS[employer]IATE) Related Data Previous Rx's Medication Instructions Recorded cyclobenzaprine 10 mg tablet 10 mg PO Q8H #20 tabs 04/30/21 naproxen 500 mg tablet (Naprosyn) 500 mg PO BID PRN pain #30 tabs 04/30/21 hydroxyzine HCl 25 mg tablet 25 mg PO TID PRN anxiety #15 tabs 10/03/22 Allergies Allergy/AdvReac Type Severity Reaction Status Date / Time cherries Allergy Unknown Unknown Uncoded 09/28/22 15:42 Horses Allergy Unknown Unknown Uncoded 09/28/22 15:42 SHELLFISH Allergy Unknown HIVES Uncoded 11/21/19 18:07 shellfish Allergy Unknown Unknown Uncoded 09/28/22 15:42 Review of Systems Review of Systems: Constitutional : No Fever, No Chills, No Fatigue ENT/Mouth : No sore throat, No Rhinorrhea Eyes: No Eye Pain, No Swelling, No Redness Cardiovascular : No Chest Pain, No SOB, No Dyspnea on Exertion Respiratory : No Cough, No Sputum Gastrointestinal : No Nausea, No Vomiting, No Diarrhea, No abdominal Pain Genitourinary : No Dysuria, No Urinary Frequency, No Hematuria, Musculoskeletal : No joint pain, No Myalgias, No Joint Swelling Skin : No Skin Lesions, No rash Neuro : No Weakness, pos Numbness, No Dizziness, positive Headache Psych : No Anxiety/Panic, No Depression Heme/Lymph: No Bruising, No Bleeding,No Lymphadenopathy Endocrine : No Polyuria, No Polydipsia All other systems reviewed and are negative [facility] Past Medical History Attestation statement: The following information was validated with the patient. Medical History (Updated 10/29/22 @ 00:00 by Vinny Schmidt) HTN (hypertension) No known health problems Social History Social History (Updated 10/28/22 @ 17:44 by Lucille Sherman DO) Alcohol intake: never Patient Tobacco Use Status: Never used Tobacco Advance Directives: No Advance Directives Information Provided: No Physical Exam ED Vital Signs: Vital Signs - 24 hr 10/28/22 16:11 10/28/22 16:43 Temperature 96.6 F L 98.1 F Pulse Rate 73 76 Respiratory Rate 17 22 H Blood Pressure 146/92 H 149/78 H Pulse Oximetry 99 Oxygen Delivery Method Room Air Room Air BMI result Body Mass Index 45.9 Appearance: Alert. Oriented X3. No acute distress. Eyes: Pupils equal, round and reactive to light. ENT: Pharynx normal. Neck: Normal inspection. Neck supple. CVS: Normal heart rate and rhythm. Pulses normal. Respiratory: No respiratory distress. Breath sounds normal. Abdomen: Soft and nontender. Skin: Skin warm and dry. Normal skin color. Normal skin turgor. Extremities: No lower extremity edema. No calf ttp Neuro: Oriented X 3. No motor deficit. No sensory deficit. NIH Stroke Scale Internal: Initial- Upon Arrival Time: 16:14 Level of Consciousness: Alert Level of Consciousness Questions: Answers both questions correctly Level of Consciousness Commands: Performs both tasks correctly Best Gaze: Normal Visual: No visual loss Facial Palsy: Normal Motor Arm (Right): No drift Motor Arm (Left): No drift Motor Leg (Right): No drift Motor Leg (Left): No drift Limb Ataxia: Absent Sensory: Normal Best Language: No aphasia Dysarthia: Normal Extinction and Inattention: No abnormality Score: 0 Course Course Course Narrative: This is a rapid medical exam: Additional HPI, ROS, PE not included below will be deferred to primary provider. Patient is a 41-year-old female with hx of HTN presenting to the emergency department with complaint of headache as well as right hand and tongue numbness approximately 2o minutes prior to arrival. Reports numbness to tip of nose as well. States numbness radiates up right arm to face. Denies any other pain besides headaches. Reports visual changes, states seeing different colors. Patient activates as stroke alert, brought directly to bed 5. Reevaluation(s) Reevaluation #1: all symptoms resolved stable fo DC Medications Administered Discontinued Medications Generic Name Dose Route Start Last Admin Trade Name Pollo PRN Reason Stop Dose Admin Diphenhydramine HCl 25 mg 10/28/22 17:11 10/28/22 17:27 Diphenhydramine Hcl 50 Mg/Ml Vial IVPUSH 10/28/22 17:12 25 mg ONCE ONE Administration Ketorolac Tromethamine 15 mg 10/28/22 17:11 10/28/22 17:26 Ketorolac Tromethamine 15 Mg/Ml Vial IVPUSH 10/28/22 17:12 15 mg ONCE ONE Administration Metoclopramide HCl 10 mg 10/28/22 17:11 10/28/22 17:26 Metoclopramide Hcl 10 Mg/2 Ml Vial IVPUSH 10/28/22 17:12 10 mg ONCE ONE Administration Medical Decision Making Medical Decision Making [facility] Narrative: 41 yo female with hx of HTN, no OCPs, NIH 0 on arrival no risk factors other than HTN for stroke comes in with onset of headache preceded by squiggly lines in eye then numbness but numbness ended up encasing her entire face this does not make sense for TIA or stroke - suspect migraine - at this time she had a CT scan within 1 hour of symptoms doubt SAH - will treat as migraine and reassess. SHe has no fevers to suggest AIR QUALITY CHEMIST infection. Differential Diagnosis Differential Diagnoses: The differential diagnosis associated with the presentation includes migraine with aura, ocular migraine Admission/Observation Consideration of admission/observation: Escalation of care including admission/observation considered symptoms improved, pain resolved stable for DC Lab Data MDM Lab Attestation statement: I reviewed the patient's lab results. 10/28/22 16:48 10/28/22 16:48 Labs: Lab Results 10/28/22 10/28/22 10/28/22 Range/Units 16:34 16:48 16:48 WBC 9.0 (4.8-10.8) X10*3/uL RBC 4.69 (4.20-5.50) X10*6/uL Hgb 11.6 L (12.0-16.0) g/dl Hct 37.1 (37.0-47.0) % MCV 79.1 L (80.0-98.0) fL MCH 24.7 L (27.0-33.0) pg MCHC 31.3 (31.0-35.0) g/dl RDW 13.1 (11.0-16.0) % Plt Count 342 (160-400) X10*3/uL MPV 9.2 L (9.4-12.3) fL Immature Gran % (Auto) 0.3 (0.0-0.4) % Neut % (Auto) 64.7 (45-73) % Lymph % (Auto) 26.3 (20-40) % [place] % (Auto) 6.1 (2-11) % Eos % (Auto) 1.9 (0-4) % Baso % (Auto) 0.7 (0-2) % Lymph # (Auto) 2.4 (1.2-4.9) X10*3/uL [place] # (Auto) 0.6 (0.1-1.2) X10*3/uL Eos # (Auto) 0.2 (0.0-0.4) X10*3/uL Baso # (Auto) 0.1 (0.0-0.2) X10*3/uL Abs Immat Gran (auto) 0.03 (0.00-0.03) X10*3/uL Absolute Neuts (auto) 5.8 (2.0-8.3) x10*3/uL Absolute Nucleated RBC 0.000 (0.0-0.012) X10*3/uL Nucleated RBC % (auto) 0.0 (0.0-0.2) /100WBC PT 12.2 (11.1-13.3) SEC INR 1.0 (0.9-1.1) APTT 29.4 (26.0-36.4) SEC Sodium (135-145) mmol/L Potassium (3.3-5.1) mmol/L Chloride (96-108) mmol/L Carbon Dioxide (22-29) mmol/L Anion Gap (12-20) BUN (9-16) mg/dL Creatinine (0.5-1.4) mg/dL Estim Creat Clear Calc Estimated GFR POC Glucose 98 (60-115) mg/dL Random Glucose (60-115) mg/dL Calcium (8.4-10.2) mg/dL Total Bilirubin (0.0-1.0) mg/dL Direct Bilirubin (0.0-0.5) mg/dL AST (5-31) U/L ALT (0-31) U/L Alkaline Phosphatase (39-117) U/L Total Creatine Kinase (26-140) U/L Troponin I High Sens (<3.5-17.0) ng/L Total Protein (6.5-8.0) g/dL Albumin (3.5-5.0) g/dL Ethyl Alcohol mg/dL 10/28/22 10/28/22 Range/Units 16:48 16:48 WBC (4.8-10.8) X10*3/uL RBC (4.20-5.50) X10*6/uL Hgb (12.0-16.0) g/dl Hct (37.0-47.0) % MCV (80.0-98.0) fL MCH (27.0-33.0) pg MCHC (31.0-35.0) g/dl RDW (11.0-16.0) % Plt Count (160-400) X10*3/uL MPV (9.4-12.3) fL Immature Gran % (Auto) (0.0-0.4) % Neut % (Auto) (45-73) % Lymph % (Auto) (20-40) % [place] % (Auto) (2-11) % Eos % (Auto) (0-4) % Baso % (Auto) (0-2) % Lymph # (Auto) (1.2-4.9) X10*3/uL [place] # (Auto) (0.1-1.2) X10*3/uL Eos # (Auto) (0.0-0.4) X10*3/uL Baso # (Auto) (0.0-0.2) X10*3/uL Abs Immat Gran (auto) (0.00-0.03) X10*3/uL Absolute Neuts (auto) (2.0-8.3) x10*3/uL Absolute Nucleated RBC (0.0-0.012) X10*3/uL Nucleated RBC % (auto) (0.0-0.2) /100WBC PT (11.1-13.3) SEC INR (0.9-1.1) APTT (26.0-36.4) SEC Sodium 142 (135-145) mmol/L Potassium 3.7 (3.3-5.1) mmol/L Chloride 105 (96-108) mmol/L Carbon Dioxide 30 H (22-29) mmol/L Anion Gap 11 L (12-20) BUN 13 (9-16) mg/dL Creatinine 0.81 (0.5-1.4) mg/dL Estim Creat Clear Calc 118.6 Estimated GFR > 60 POC Glucose (60-115) mg/dL Random Glucose 102 (60-115) mg/dL Calcium 9.9 (8.4-10.2) mg/dL Total Bilirubin 0.4 (0.0-1.0) mg/dL Direct Bilirubin 0.1 (0.0-0.5) mg/dL AST 21 (5-31) U/L ALT 13 (0-31) U/L Alkaline Phosphatase 95 (39-117) U/L Total Creatine Kinase 288 H (26-140) U/L Troponin I High Sens < 2.7 (<3.5-17.0) ng/L Total Protein 7.7 (6.5-8.0) g/dL Albumin 4.2 (3.5-5.0) g/dL Ethyl Alcohol < 10 mg/dL Independent Interpretation I performed an independent interpretation of an: CT Scan (no ICH) Radiology Impression Discussion of test interpretation with radiology: I discussed test interpretation with the radiologist and I have reviewed the radiologist's reading. External Record Review External record reviewed: Office record Chronic Conditions Patient?s care impacted by: Other Critical Care Time Critical Care Time Critical Care Time: Yes Total Critical Care Time: 31 Attestation: stroke alert done from triage and rapid radiology review I attest to this time spent taking care of the patient Discharge Plan Discharge Clinical Impression: Migraine Patient Disposition: Home, Self-Care Instructions: Migraine Headache (ED) Additional Instructions: CT head was normal. return for weakness, numbness, vision changes, vomiting, confusion or any other concerns. take your medications as prescribed. Prescriptions: No Action cyclobenzaprine 10 mg tablet 10 mg PO Q8H Qty: 20 0RF naproxen [Naprosyn] 500 mg tablet 500 mg PO BID PRN (Reason: pain) Qty: 30 0RF hydroxyzine HCl 25 mg tablet 25 mg PO TID PRN (Reason: anxiety) Qty: 15 0RF Interventions: ED Discharge Assessment Last Done: 10/28/22 19:04 Discharge Date/Time: 10/28/22 19:05
--- NOTE | 2022-10-28 16:18 | ECG_ITS ---
Test Reason : CHEST PAIN Blood Pressure : / mmHG Vent. Rate : 070 BPM Atrial Rate : 070 BPM P-R Int : 162 ms QRS Dur : 102 ms QT Int : 398 ms P-R-T Axes : 022 028 042 degrees QTc Int : 429 ms Normal sinus rhythm RSR' or QR pattern in V1 suggests right ventricular conduction delay Borderline ECG When compared with ECG of 03-OCT-2022 15:09, No significant change was found Referred By: Lorin Marshall Electronically Signed By:KAY LINDSAY
[2022-10-28 16:38] LABS: Glucose, Whole Blood 98 mg/dL (60-115)
[2022-10-28 16:43] VITALS: BP 149/78; PULSE 76; RESP 22; TEMP 36.7
[2022-10-28 16:57] LABS: MANUAL DIFF FLAG NO
[2022-10-28 17:01] LABS: Basophils Absolute Auto 0.1 X10*3/uL (0.0-0.2); Basophils Percent Auto 0.7 % (0-2); Eosinophils Absolute Auto 0.2 X10*3/uL (0.0-0.4); Eosinophils Percent Auto 1.9 % (0-4); Hematocrit 37.1 % (37.0-47.0); Hemoglobin 11.6 g/dl (12.0-16.0); Imm Gran Abs Auto 0.03 X10*3/uL (0.00-0.03); Imm Gran Pct Auto 0.3 % (0.0-0.4); Lymphocytes Absolute Auto 2.4 X10*3/uL (1.2-4.9); Lymphocytes Percent Auto 26.3 % (20-40); Mean Corpuscular HGB Conc 31.3 g/dl (31.0-35.0); Mean Corpuscular Hemoglobin 24.7 pg (27.0-33.0); Mean Corpuscular Volume 79.1 fL (80.0-98.0); Mean Platelet Volume 9.2 fL (9.4-12.3); Monocytes Absolute Auto 0.6 X10*3/uL (0.1-1.2); Monocytes Percent Auto 6.1 % (2-11); Neutrophils Absolute Auto 5.8 x10*3/uL (2.0-8.3); Neutrophils Percent Auto 64.7 % (45-73); Platelet Count 342 X10*3/uL (160-400); Red Blood Count 4.69 X10*6/uL (4.20-5.50); Red Cell Distribution Width 13.1 % (11.0-16.0)
[2022-10-28 17:04] LABS: Prothrombin Time 12.2 SEC (11.1-13.3)
[2022-10-28 17:06] LABS: Partial Thromboplastin Time 29.4 SEC (26.0-36.4)
[2022-10-28 17:15] LABS: Alanine Aminotransferase 13 U/L (0-31); Albumin Level 4.2 g/dL (3.5-5.0); Alkaline Phosphatase 95 U/L (39-117); Anion Gap 11 (12-20); Aspartate Amino Transferase 21 U/L (5-31); Bilirubin Direct 0.1 mg/dL (0.0-0.5); Bilirubin Total 0.4 mg/dL (0.0-1.0); Blood Urea Nitrogen 13 mg/dL (9-16); Calcium 9.9 mg/dL (8.4-10.2); Carbon Dioxide 30 mmol/L (22-29); Chloride 105 mmol/L (96-108); Creatinine Clr Calc Pharmacy 118.6; Estimated Glomerular Filt Rate > 60; Ethanol < 10 mg/dL; Glucose Random 102 mg/dL (60-115); Potassium 3.7 mmol/L (3.3-5.1); Sodium 142 mmol/L (135-145); Total Protein 7.7 g/dL (6.5-8.0)
[2022-10-28 17:21] LABS: Troponin-I High Sensitivity < 2.7 ng/L (<3.5-17.0)
[2022-10-28] MEDS: Ketorolac Tromethamine 15 MG/ML VIAL IVPUSH (17:26)
[2022-10-28] MEDS: Metoclopramide HCl 10 MG/2 ML VIAL IVPUSH (17:26)
[2022-10-28] MEDS: diphenhydrAMINE HCL 50 MG/ML VIAL 25 MG IVPUSH (17:27)
[2022-10-28 19:23] LABS: Stroke Lab Use COMPLETE
== END 2022-10-28 19:05 | disposition home or self-care (01) ==
PROVIDERS: Registered Nurse Emergency; Emergency Provider Emergency Medicine
DX: G43.909 Migraine, unspecified, not intractable, without status migrainosus (principal); R07.89 Other chest pain; R20.0 Anesthesia of skin; Z79.899 Other long term (current) drug therapy
CPT/HCPCS: 36415; 70450; 71045; 80048; 80076; 80307; 82550; 82947; 84484; 85025; 85610; 85730; 93005; 96374; 96375; 99284; 99285; J1200; J1885; J2765

== ENCOUNTER 2022-10-29 21:51 | Emergency (ER) | payer MEDICAID, SELFPAY ==
[2022-10-29 22:08] VITALS: BP 154/97; PULSE 88; RESP 18; TEMP 36.8; O2SAT 99; BMI 46.6
[2022-10-30 00:25] VITALS: BP 142/88; PULSE 85; RESP 15; O2SAT 99
--- NOTE | 2022-10-30 00:33 | PC.NURSE ---
pt resting on stretcher, reports 5/10 headache that came on gradually, similar to one she had the ned night. Pt offers no complaints to this RN at this time. Pt provided with ice pack for comfort
--- NOTE | 2022-10-30 00:51 | ED_ITS ---
HPI - Headache General Chief Complaint: Headache Stated Complaint: Dizziness/Headache/R arm numbness Time Seen by Provider: 10/30/22 00:09 Source: patient Mode of arrival: ambulatory Limitations: no limitations History of Present Illness HPI Narrative: 41-year-old female presents with left-sided headache. Symptoms are severe but currently 4/10. Pain is left-sided. Does not radiate. Associated with photo and phonophobia. Associated with nausea but no vomiting. She has had no fevers or chills. She denies any neck pain or stiffness. She denies any fevers or chills. Patient does not usually experience headaches. Home treatment typically includes Tylenol without improvement. Patient was here last night for evaluation as well. She notes that when her blood pressure is over 150, her body feels generally unwell. Related Data Previous Rx's Medication Instructions Recorded cyclobenzaprine 10 mg tablet 10 mg PO Q8H #20 tabs 04/30/21 naproxen 500 mg tablet (Naprosyn) 500 mg PO BID PRN pain #30 tabs 04/30/21 hydroxyzine HCl 25 mg tablet 25 mg PO TID PRN anxiety #15 tabs 10/03/22 jmbgolyhdo-ikfbfmgetpvnp-voepqefv 1 cap PO Q8H PRN pain #10 caps 10/30/22 50 mg-300 mg-40 mg capsule (Fioricet) Allergies Allergy/AdvReac Type Severity Reaction Status Date / Time cherries Allergy Unknown Unknown Uncoded 09/28/22 15:42 Horses Allergy Unknown Unknown Uncoded 09/28/22 15:42 SHELLFISH Allergy Unknown HIVES Uncoded 11/21/19 18:07 shellfish Allergy Unknown Unknown Uncoded 09/28/22 15:42 Review of Systems Review of Systems: CONSTITUTIONAL: Denies weight loss, fever and chills. HEENT: Denies changes in vision and hearing. RESPIRATORY: Denies SOB and cough. CV: Denies palpitations no CP. GI: Denies abdominal pain, +nausea, - vomiting and diarrhea. : Denies dysuria and urinary frequency. MSK: Denies myalgia and joint pain. SKIN: Denies rash and pruritus. NEUROLOGICAL: + headache - syncope. PSYCHIATRIC: Denies recent changes in mood. Denies anxiety and depression. All other ROS are negative unless in HPI PMFSH Past Medical History Medical History HTN (hypertension) No known health problems Social History Social History Alcohol intake: current Alcohol intake frequency: holidays/special occasions only Patient Tobacco Use Status: Never used Tobacco Smoked in Last 30 Days: No Use of substances other than those prescribed or required for medical reasons: No Advance Directives: No Advance Directives Information Provided: Yes Physical Exam Vital Signs: Vital Signs: Last Vital Signs Temp 98.2 F 10/29/22 22:08 Pulse 85 10/30/22 00:25 Resp 15 10/30/22 00:25 BP 142/88 H 10/30/22 00:25 Pulse Ox 99 10/30/22 00:25 O2 Del Method Room Air 10/30/22 00:25 BMI result Body Mass Index 46.6 GEN: Well developed, no acute distress, alert, oriented HEENT: Normocephalic, atraumatic, normal external ears, nose appears normal, no oropharyngeal edema or exudates Eyes: Normal to appearance Neck: Supple, no lymphadenopathy Respiratory: Talks in complete sentences, no respiratory distress, clear to auscultation bilaterally Cardiovascular: Regular rate and rhythm, no murmurs rubs or gallops Abdomen: Soft, nontender, nondistended, no guarding, no rebound Back: No CVA tenderness Extremities: No clubbing cyanosis or edema Neurologic: No focal neurologic deficits, cranial nerves 2-12 intact, strength is 5/5 bilaterally Skin: No rash Course Course Course Narrative: Patient's headache has completely aborted. At this time I believe the patient has a migraine headache history. Will prescribe her medications with sister with this. She can be followed up by her primary care provider and referred to a neurologist if need be. Medications Administered Discontinued Medications Generic Name Dose Route Start Last Admin Trade Name Freq PRN Reason Stop Dose Admin Acetaminophen/Butalbital/Caffeine 1 tab 10/30/22 00:44 10/30/22 00:54 Butalb/Acetamin/Caff 50/325/40 Tablet PO 10/30/22 00:45 1 tab ONCE ONE Administration Dexamethasone Sodium Phosphate 10 mg 10/30/22 00:44 10/30/22 00:54 Dexamethasone Sod Phosphate 10 Mg/Ml Vial IVPUSH 10/30/22 00:45 10 mg ONCE ONE Administration Sodium Chloride 1,000 mls @ 999 mls/hr 10/30/22 00:45 10/30/22 00:54 Ns IV 10/30/22 01:45 999 mls/hr .Q1H1M LUI Administration Ketorolac Tromethamine 15 mg 10/30/22 00:44 10/30/22 00:54 Ketorolac Tromethamine 15 Mg/Ml Vial IVPUSH 10/30/22 00:45 15 mg ONCE ONE Administration Metoclopramide HCl 10 mg 10/30/22 00:44 10/30/22 00:54 Metoclopramide Hcl 10 Mg/2 Ml Vial IVPUSH 10/30/22 00:45 10 mg ONCE ONE Administration Medical Decision Making Medical Decision Making MDM Narrative: presents with Headache. No focal neurological symptoms. Neuro exam is benign. Pt is nontoxic. VSS. Based on history and normal neurological exam I have low suspicion for intracranial tumor, intracranial bleed, meningitis, temporal arteritis, glaucoma, CO poisoning. Most likely patient has benign headache, recommend rest, hydration, and ibuprofen. Differential Diagnosis Differential Diagnoses: The differential diagnosis associated with the presentation includes (Migraine, tension, cluster, sinus) Prescription Management I considered prescription management with: Pain Medication Chronic Conditions Patient?s care impacted by: Hypertension Discharge Plan Discharge Clinical Impression: Migraine Patient Disposition: Home, Self-Care Instructions: Migraine Headache (ED) Prescriptions: New gwohvpfbst-kfzroqueaavhu-qcup [Fioricet] 50-300-40 mg capsule 1 cap PO Q8H PRN (Reason: pain) Qty: 10 0RF No Action cyclobenzaprine 10 mg tablet 10 mg PO Q8H Qty: 20 0RF naproxen [Naprosyn] 500 mg tablet 500 mg PO BID PRN (Reason: pain) Qty: 30 0RF hydroxyzine HCl 25 mg tablet 25 mg PO TID PRN (Reason: anxiety) Qty: 15 0RF Referrals: Reema Grant E[facility] THRO[facility]IST [Primary Care Provider] - 1 week
[2022-10-30] MEDS: Ketorolac Tromethamine 15 MG/ML VIAL IVPUSH (00:54)
[2022-10-30] MEDS: Butalb/Acetamin/Caff 50/325/40 TABLET 1 TAB PO (00:54)
[2022-10-30] MEDS: 0.9 % Sodium Chloride 1,000 ML 999 ML IV (00:54)
[2022-10-30] MEDS: dexAMETHasone sod phosphate 10 MG/ML VIAL IVPUSH (00:54)
[2022-10-30] MEDS: Metoclopramide HCl 10 MG/2 ML VIAL IVPUSH (00:54)
--- NOTE | 2022-10-30 01:11 | PC.NURSE ---
20g IV placed in RAC, pt medicated per MAR, respirations even and unlabored, skin pwd, alert and oriented x4, no apparent distress at this time. Continue plan of care for pain management and monitor for d/c
[2022-10-30 02:20] VITALS: BP 145/92; PULSE 88; RESP 15; O2SAT 99
== END 2022-10-30 02:22 | disposition home or self-care (01) ==
PROVIDERS: Emergency Provider Emergency Medicine; PCP Nurse Practitioner Primary Care
DX: G43.909 Migraine, unspecified, not intractable, without status migrainosus (principal); Z79.899 Other long term (current) drug therapy
CPT/HCPCS: 96361; 96374; 96375; 99284; 99285; J1100; J1885; J2765

== ENCOUNTER 2022-11-26 09:19 | Outpatient (REF) | payer MEDICAID, SELFPAY ==
[2022-11-26 10:34] LABS: Cholesterol 140 mg/dL (<200); HDL Cholesterol 33 mg/dL (>40); LDL Cholesterol Calculated 89 mg/dL (<100); Triglycerides 90 mg/dL (<150)
[2022-11-26 11:00] LABS: Estimated Average Glucose 120 mg/dL; Hemoglobin A1c % 5.8 % (<6.0)
[2022-11-26 11:43] LABS: Creatinine Urine 162.97 mg/dL; Microalbumin Urine < 5.0 mg/L
== END 2022-11-26 09:20 | disposition home or self-care (01) ==
LOC: HO.LAB 09:19
PROVIDERS: PCP Nurse Practitioner Primary Care; Visit Provider Nurse Practitioner Primary Care
DX: R74.8 Abnormal levels of other serum enzymes (principal); R73.01 Impaired fasting glucose; I10 Essential (primary) hypertension
CPT/HCPCS: 36415; 80061; 82043; 82550; 82570; 83036

== ENCOUNTER → 2022-12-16 12:54 | Outpatient (REF) | payer MEDICAID, SELFPAY ==
--- NOTE | 2022-12-16 12:56 | CA_ITS ---
Transthoracic Echocardiogram Patient (Last, First, Middle): Robert Redd, Gender: Female Date of : 1980 Age: 42 Procedure Date: 12/16/2022 Procedure Type: Transthoracic Echocardiogram Location: OP Height: 162.56 cm Weight: 116.58 kg BSA: 2.18 m2 Heart Rate: 66 bpm BP: 135 / 90 mmHg Helper/Driver: KUMAR Referring MD: Reema Grant NP Symptoms: RBBB I45.10 Study Quality: Adequate ECG Rhythm: Sinus Conclusions: - Normal left ventricular size, thickness, systolic function, and wall motion. The visually estimated ejection fraction is between 60-65%. Diastolic function is normal for age. - Normal right ventricular cavity size and systolic function. Findings Left Ventricle Normal left ventricular size, thickness, systolic function, and wall motion. The visually estimated ejection fraction is between 60-65%. Diastolic function is normal for age. Right Ventricle Normal right ventricular cavity size and systolic function. Atria The left atrium is normal in size. The right atrium is normal in size. Aortic Valve Normal aortic valve structure and function. There is no aortic valve stenosis. There is no aortic valve regurgitation. Mitral Valve The mitral valve appears normal. There is no mitral valve regurgitation. There is no mitral valve stenosis. Pulmonic Valve The pulmonic valve is likely normal. Tricuspid Valve Normal tricuspid valve structure. There is no tricuspid valve regurgitation. Normal right atrial pressure. There is no evidence of pulmonary hypertension. Great Vessels All visible segments of the aorta are normal in size. The visualized portions of the pulmonary artery and branches are normal. Venous The inferior vena cava is normal in size and collapses greater than 50% with inspiration. Pericardium/Pleural There is no evidence of pericardial effusion. Prior Study Comparison No prior study available for comparison. Measurements 2D Linear Measurements IVSd: 0.82 0.6-0.9/0.6-1.0 cm LVIDd: 4.62 3.9-5.3/4.2-5.9 cm LVIDd Index: 2.12 2.4-3.2/2.2-3.1 cm/m2 LVIDs: 3.21 2.0-3.6 cm LVPWd: 0.92 0.7-1.1 cm LA Diam: 4.20 2.7-3.8/3.0-4.0 cm LAIDs Index: 1.93 1.5-2.3 cm/m2 LV Mass: 164.99 67-162/88-224 g LV Mass Index: 75.69 43-95/49-115 g/m2 LVOT Diam: 1.90 3.0+(-)1.3 cm 2D Systolic Function EF 4C: 51.90 >55% EF 2C: 52.20 >55% EF BiP: 51.50 >55% Mitral Valve MV Pk E: 1.20 MV PK A: 0.84 MV Decel Time: 189.00 E/A: 1.40 E'Lateral: 9.36 E'Medial: 7.29 E/E' Med: 16.50 E/E' Lat: 12.80 PHT: 55.00 MVA PHT: 4.00 Decel [place]: 6.33 Aortic Valve AoV Pk Harsha: 1.92 AoV Mn Harsha: 1.32 AoV VTI: 0.40 AoV Pk Grad: 15.00 Aov Mn Grad: 8.00 RENATE Cont.VTI: 1.65 LVOT LVOT Pk Harsha: 1.12 LVOT Mn Harsha: 0.78 LVOT VTI: 0.23 LVOT Pk Grad: 5.00 LVOT Mn Grad: 3.00 LVOT Diam: 1.90 LVOT Area: 2.84 Diastolic Function MV Pk E: 1.20 MV Pk A: 0.84 E/A: 1.40 E'Medial: 7.29 E/E' Med: 16.50 E' Laterial: 9.36 E/E' Lat: 12.80 Right Ventricle TAPSE (mm): 21.20 TVS' Harsha: 12.40 Tricuspid Valve TR Pk Harsha: 2.18 TR Pk Grad: 19.00 RA Press: 3.00 RVSP: 22.00 Great Vessels Aorta Sinus of Valsalva: 3.30 2.0-3.5 cm Ao Asc: 3.10 2.1-3.4 cm Pulmonary Valve PV Pk Harsha: 1.15 Peak PV Grad: 5.00 Updated in Other Vendor System with Status of Final Randolph Bello MD electronically signed on 12/18/2022 7:20:56 PM with status of Final
== END ==
LOC: HO.CARD 12:54
PROVIDERS: PCP Nurse Practitioner Primary Care; Visit Provider Nurse Practitioner Primary Care
DX: I45.10 Unspecified right bundle-branch block (principal)
CPT/HCPCS: 93306

== ENCOUNTER → 2022-12-16 12:56 | Outpatient (BNV) | payer MEDICAID, SELFPAY | PROVIDERS: PCP Nurse Practitioner Primary Care; Visit Provider Internal Medicine Cardiovascular Disease | DX: R07.9 Chest pain, unspecified (principal) | CPT/HCPCS: 93306 ==

== ENCOUNTER 2023-03-28 08:50 | Outpatient (REF) | payer MEDICAID, SELFPAY ==
--- NOTE | ~2023-03-28 | MM_ITS ---
EXAMINATION: MM SCREENING DIGITAL BREAST TOMOSYNTHESIS, BILATERAL CLINICAL INFORMATION: Screening. Asymptomatic. COMPARISON: Mammography: This study is a baseline examination. TECHNIQUE: Digital breast tomosynthesis is performed in both the craniocaudal and mediolateral oblique views along with computer-aided detection (CAD). Synthesized 2D images are generated from the tomosynthesis. FINDINGS: There are scattered areas of fibroglandular density (ACR BI-RADS breast composition Category b). There are grouped calcifications in the retroareolar 12:00 position of the right breast. Further evaluation with magnification imaging is advised. There are no other significant findings in the right breast. In the left breast, there are no significant masses, abnormal calcifications, or other abnormalities. MM/MM tomosynthesis screening BI IMPRESSION: Grouped calcifications in the retroareolar 12:00 position of the right breast warrant additional mammographic imaging with magnification. No mammographic signs of malignancy left breast. ASSESSMENT: BI-RADS BI-RADS 0 - Incomplete: Needs additional Imaging. RECOMMENDATION: Additional views of the right breast. Radiology department staff will contact the patient for additional imaging. Additional Imaging required This examination should not preclude the clinical evaluation of a suspicious palpable abnormality. This patient's information was entered into a reminder system with a target due date for their next mammogram.
== END 2023-03-28 08:51 | disposition home or self-care (01) ==
LOC: HO.MAMMO 08:50
PROVIDERS: PCP Nurse Practitioner Primary Care; Visit Provider Nurse Practitioner Primary Care
DX: Z12.31 Encounter for screening mammogram for malignant neoplasm of breast (principal)
CPT/HCPCS: 77063; 77067

== ENCOUNTER → 2023-03-28 09:00 | Outpatient (BNV) | payer MEDICAID, SELFPAY | PROVIDERS: PCP Nurse Practitioner Primary Care; Visit Provider Radiology Diagnostic Radiology | DX: Z12.31 Encounter for screening mammogram for malignant neoplasm of breast (principal) | CPT/HCPCS: 77063; 77067 ==

== ENCOUNTER 2023-05-08 12:53 | Outpatient (REF) | payer MEDICAID, SELFPAY ==
--- NOTE | ~2023-05-08 | MM_ITS ---
EXAMINATION: MM DIAGNOSTIC DIGITAL BREAST TOMOSYNTHESIS, RIGHT CLINICAL INFORMATION: Evaluate calcifications seen retroareolar and upper right breast on baseline screening exam. COMPARISON: Mammography: Baseline exam 03/28/2023. TECHNIQUE: Digital breast tomosynthesis is performed in the following views: 2-D spot magnification right CC and ML views x2. FINDINGS: There are scattered areas of fibroglandular density (ACR BI-RADS breast composition Category b). Calcifications seen in the right breast retroareolar and upper region are loosely grouped, and majority appear to layer on the true lateral ML views. Findings are consistent with benign milk of calcium. No suspicious calcifications are identified. There are similar calcifications in a similar distribution in the left breast, upon review of the baseline exam. MM/MM tomosynthesis diagnostic RT IMPRESSION: Calcifications in the right breast are benign. No further follow-up recommended. Recommend the patient return to routine annual screening. ASSESSMENT: BI-RADS BI-RADS 2 - Benign Findings RECOMMENDATION: 1 year F/U Results were provided to the patient at time of visit by the technologist. This patient's information was entered into a reminder system with a target due date for their next mammogram.
== END 2023-05-08 12:54 | disposition home or self-care (01) ==
LOC: HO.MAMMO 12:53
PROVIDERS: PCP Nurse Practitioner Primary Care; Visit Provider Nurse Practitioner Primary Care
DX: R92.1 Mammographic calcification found on diagnostic imaging of breast (principal)
CPT/HCPCS: 77061; 77065

== ENCOUNTER → 2023-05-08 13:00 | Outpatient (BNV) | payer MEDICAID, SELFPAY | PROVIDERS: PCP Nurse Practitioner Primary Care; Visit Provider Radiology Diagnostic Radiology | DX: R92.1 Mammographic calcification found on diagnostic imaging of breast (principal) | CPT/HCPCS: 77061; 77065 ==

== ENCOUNTER 2023-11-24 09:34 | Outpatient (REF) | payer MEDICAID, SELFPAY ==
[2023-11-24 11:28] LABS: MANUAL DIFF FLAG NO
[2023-11-24 11:41] LABS: Basophils Absolute Auto 0.1 X10*3/uL (0.0-0.2); Basophils Percent Auto 0.8 % (0-2); Eosinophils Absolute Auto 0.2 X10*3/uL (0.0-0.4); Eosinophils Percent Auto 2.9 % (0-4); Hematocrit 40.3 % (37.0-47.0); Hemoglobin 12.4 g/dl (12.0-16.0); Imm Gran Abs Auto 0.02 X10*3/uL (0.00-0.03); Imm Gran Pct Auto 0.3 % (0.0-0.4); Lymphocytes Absolute Auto 2.2 X10*3/uL (1.2-4.9); Lymphocytes Percent Auto 34.5 % (20-40); Mean Corpuscular HGB Conc 30.8 g/dl (31.0-35.0); Mean Corpuscular Hemoglobin 24.8 pg (27.0-33.0); Mean Corpuscular Volume 80.6 fL (80.0-98.0); Mean Platelet Volume 9.4 fL (9.4-12.3); Monocytes Absolute Auto 0.4 X10*3/uL (0.1-1.2); Monocytes Percent Auto 5.9 % (2-11); Neutrophils Absolute Auto 3.6 x10*3/uL (2.0-8.3); Neutrophils Percent Auto 55.6 % (45-73); Platelet Count 331 X10*3/uL (160-400); Red Cell Distribution Width 13.3 % (11.0-16.0); White Blood Count 6.5 X10*3/uL (4.8-10.8)
[2023-11-24 12:18] LABS: Alanine Aminotransferase 15 U/L (0-31); Albumin Level 4.2 g/dL (3.5-5.0); Alkaline Phosphatase 99 U/L (39-117); Anion Gap 11 (12-20); Aspartate Amino Transferase 14 U/L (5-31); Bilirubin Total 0.6 mg/dL (0.0-1.0); Blood Urea Nitrogen 12 mg/dL (9-16); Calcium 9.7 mg/dL (8.4-10.2); Carbon Dioxide 26 mmol/L (22-29); Chloride 106 mmol/L (96-108); Estimated Glomerular Filt Rate > 60; Glucose Random 106 mg/dL (60-115); Potassium 4.3 mmol/L (3.3-5.1); Sodium 139 mmol/L (135-145); TSH reflex Free T4 0.74 uIU/mL (0.32-4.0); Total Protein 7.8 g/dL (6.5-8.0); Vitamin D 25-OH Total 30.4 ng/mL (>30)
[2023-11-24 12:37] LABS: Folate 10.7 ng/mL (> or = 4.0); Vitamin B12 336 pg/mL (200-900)
== END 2023-11-24 09:35 | disposition home or self-care (01) ==
LOC: HO.HHCL 09:34
PROVIDERS: Visit Provider Family Medicine
DX: R20.0 Anesthesia of skin (principal); R42 Dizziness and giddiness; Z86.39 Personal history of other endocrine, nutritional and metabolic disease
CPT/HCPCS: 36415; 80053; 82306; 82550; 82607; 82746; 84443; 85025

== ENCOUNTER 2023-12-20 18:02 | Outpatient (REF) | payer MEDICAID, SELFPAY ==
[2023-12-22 11:13] LABS: HPV mRNA E6/E7 Not Detected (Not Detected)
== END 2023-12-20 18:03 | disposition home or self-care (01) ==
LOC: HO.HHCLNP 18:02
PROVIDERS: Visit Provider Advanced Practice Midwife
DX: Z12.4 Encounter for screening for malignant neoplasm of cervix (principal)
CPT/HCPCS: 36415; 87624; 88175

== ENCOUNTER 2024-04-02 08:52 | Outpatient (REF) | payer MEDICAID, SELFPAY ==
--- OUTSIDE RECORDS SUMMARY | 2024-04-02 09:10 | XMS_ITS | Clinical Summary ---
Author Organization [employer] Address [address] [facility] 7[address] [place] [address] Care Team Providers Care Radio Equipment Repairer Name Role Phone Patito De La O Primary Care Provider [phone] Allergies Active Allergy Reactions Criticality Noted Date Comments Hoover Anaphylaxis High 10/17/2023 Latex Rash Low 11/15/2017 Shellfish-Derived Products Anaphylaxis High 11/16/19 18 Medications * This document contains information received from the source organization and may not represent a complete record from that organization. Blood Pressure Monitoring (Omron 3 Series BP Monitor) device USE TO CHECK BLOOD PRESSURE DAILY DIRECTED 07/02/19 22 Active cetirizine (ZyrTEC) 10 MG tablet TAKE 1 TABLET BY MOUTH EVERY DAY NEEDED 90 tablet 1 11/01/19 23 Active Additional Information Patient not taking.Reported on 01/29/2024 fluticasone (Flonase) 50 MCG/ACT nasal spray SPRAY 2 SPRAYS INTO EACH NOSTRIL EVERY DAY 48 mL 1 12/10/19 23 Active Additional Information Patient not taking.Reported on 01/29/2024 ferrous sulfate 325 (65 Fe) MG tablet Take 325 mg by mouth with breakfast. Active cholecalciferol (Vitamin D-3) 50 MCG (2000 UT) capsule Take 1 capsule (50 mcg) by mouth Once per day. 30 capsule 11/24/19 24 025 Active Additional Information Patient not taking.Reported on 01/29/2024 EPINEPHrine (Epipen) 0.3 MG/0.3ML injection syringeIndicati ons:Food allergy Inject 0.3 mL (0.3 mg) as directed 1 (one) time for 1 dose. use as directed for allergic reaction and then call 911 2 each 1 12/01/19 24 Active losartan (Cozaar) 50 MG tabletIndicatio ns:Primary hypertension TAKE 1 TABLETS BY MOUTH EVERY DAY FOR HIGH BLOOD PRESSURE 90 tablet 1 02/09/20 24 Active ibuprofen 600 MG tabletIndicatio ns:Numbness and tingling in both hands TAKE 1 TABLET BY MOUTH UP TO 3 TIMES A DAY WITH FOOD NEEDED FOR PAIN 60 tablet 03/11/19 25 Active hydrOXYzine HCl (Atarax) 25 MG tabletIndicatio ns:SUNIL (generalized anxiety disorder) TAKE 1 TABLET BY MOUTH IF NEEDED IN THE MORNING, AT NOON, AND AT BEDTIME FOR ANXIETY. 60 tablet 03/11/19 25 Active ibuprofen 600 MG tabletIndicatio ns:Numbness and tingling in both hands TAKE 1 TABLET BY MOUTH UP TO 3 TIMES A DAY WITH FOOD NEEDED FOR PAIN 60 tablet 02/08/20 24 025 Discontinued hydrOXYzine HCl (Atarax) 25 MG tabletIndicatio ns:SUNIL (generalized anxiety disorder) TAKE 1 TABLET BY MOUTH IF NEEDED IN THE MORNING, AT NOON, AND AT BEDTIME FOR ANXIETY. 60 tablet 02/09/20 24 025 Discontinued Active Problems Problem Noted Date Diagnosed Date Migraine 11/23/2022 Obstructive sleep apnea syndrome 10/13/2022 Elevated fasting glucose 10/13/2022 SUNIL (generalized anxiety disorder) 10/13/2022 Assessment & Plan (10/18/2022 8:31 AM EDT): Assessment: Patient with anxiousness, excessive worry, restlessness, frustration, fearfulness, and difficulties relaxing in the context of lack of treatment. Patient will benefit from an OP therapy referral. PCP is currently prescribing medication. At this time Robert Camacho meets criteria for Visit Diagnoses: Problem List Items Addressed This Visit Other SUNIL (generalized anxiety disorder) Patient ready to address current needs Yes Strengths include strong network of friends and family PLAN: 1. Follow up with [facility] [place]: Recommended for follow-up: As needed 2. Patient goal is be able to control anxiety 3. Behavioral Recommendations a. Patient will comply with medication b. Patient will use coping techniques provided c. Patient may request to speak with [facility] during next PCP visit. If needed Essential hypertension 05/19/2021 Obesity 10/13/2014 Encounters Date Type Department Care Team Description 03/10/2024 Refill [facility] [address] [place] [address] Patito De La O ANP Numbness and tingling in both hands; SUNIL (generalized anxiety disorder) 02/22/2024 8:00 AM EST Office Visit [facility] [address] [place] [address] Jacqueline Landers DDS Dental caries (Primary Dx) 02/19/2024 Travel 02/08/2024 Refill [facility] [address] [place] [address] Patito De La O ANP Primary hypertension 02/08/2024 Refill [facility] [address] [place] [address] Marshal Woody MD 02/08/2024 Refill [facility] [address] [place] [address] Patito De La O ANP SUNLI (generalized anxiety disorder) 02/07/2024 Refill [facility] [address] [place] [address] Patito De La O ANP Numbness and tingling in both hands 01/29/2024 11:00 AM EST Office Visit [facility] [address] [place] [address] Jacqueline Landers DDS Encounter for dental examination (Primary Dx); Open fracture of tooth, initial encounter from Last 3 Months Immunizations Name Administration Dates Next Due Influenza injectable quadrivalent preservative f ree 2022 Influenza, seasonal, injectable, preservative fr ee 12/01/2023 Pfizer Covid-19 Vaccine 12+ 01/23/2021 Tdap 11/18/2014 Family History Medical History Relation Name Comments Thyroid cancer Father's Sister Hypertension Other Kidney disease Other Mental illness Other Thyroid cancer Other Relation Name Status Comments Father's Sister Other Social History Tobacco Use Types Packs/Day Years Used Date Smoking Tobacco: Never Passive Smoke Exposure: Never Smokeless Tobacco: Never Tobacco Cessation:Counseling Given: Not Answered Alcohol Use Standard Drinks/Week Comments Not Currently 0 (1 standard drink = 0.6 oz pur e alcohol) Depression Answer Date Recorded Patient Health Questionnaire-9 Score 7 12/01/2023 Patient Health Questionnaire-9 Score 7 12/01/2023 Last PHQ-9: Questionnaire Data Not on file 0 12/01/2023 Housing Stability Answer Date Recorded What is your housing situation today? I have donaldo mendez 12/01/[address] you li ve. Do you have problems with any of the following? None of the above 12/01/2023 Food Insecurity Answer Date Recorded Within the past 12 months, y ou worried that your food would run out before you got money to buy more: Never True 12/01/2023 Within the past 12 months,th e food you bought just didn't last and you didn't have enough money to get more: Never True Transportation Answer Date Recorded In the past 12 months, has l ack of transportation kept you from medical appts, meetings, work or from getting things needed for daily living? No 12/01/2023 Utilities Answer Date Recorded In the past 12 months, has t he electric, gas, oil or water company threatened to shut off services in your home? No 12/01/2023 Depression Answer Date Recorded Patient Health Questionnaire-2 Score 2 12/01/2023 Internet Access Answer Date Recorded Internet Access Q1 I am not sure 12/01/2023 Internet Access Q2 Not on file 12/01/2023 Comments Unknown Sex and Gender Information Value Date Recorded Sex Assigned at Female 01/03/2022 10:21 AM EDT Legal Sex Female 10:21 AM EDT Gender Identity Female 01/03/2022 10:21 AM EDT Sexual Orientation Don't know 01/03/2022 10 :21 AM EDT Last Filed Vital Signs Vital Sign Reading Time Taken Comments Blood Pressure 136/105 02/22/2024 8:08 AM EST Pulse 71 12/20/2023 11:00 AM EDT Temperature 36.2 ??C (97.2 ??F) 12/20/2023 11:00 AM E DT Respiratory Rate 20 12/20/2023 11:00 AM EDT Oxygen Saturation 98% 12/20/2023 11:00 AM EDT Inhaled Oxygen Concentration - - Weight 127 kg (280 lb 9.6 oz) 12/20/2023 11:00 A M EDT Height 162.6 cm (5' 4 ) 12/20/2023 11:00 AM EDT Body Mass Index 48.16 12/20/2023 11:00 AM EDT Plan of Treatment Upcoming Encounters Date Type Department Care Team (Late st Contact Info) Description 04/23/2024 8:00 AM EST Office Visit [facility] [address], [place] [id number] Selene Boone Health Maintenance Due Date Last Done Comments Alcohol/Substance Use Screening 1993 Hepatitis B Vaccines (1 of 3 - 19+ 3-dose series) 2000 COVID-19 Vaccine ( season) 2023 01/23/2021, 03/24/2020, 03/03/2020 Dental Prophylaxis 02/15/2024 08/15/2023, 0 07/26/2021, 11/19/2018, Additional history exists Dental Oral Exam 07/29/2024 01/29/2024, 01/2024, 07/26/2021, Additional history exists DTaP/Tdap/Td Vaccines (2 - Td or Tdap) 11/18/2024 11/18/2014 Depression Screening 11/30/2024 12/01/2023, 12/01/19 24 SDOH Screening 11/30/2024 12/01/2023 Family Planning (PISQ) 12/19/2024 12/20/2023 Dental X-Ray: Bitewings 01/29/2025 01/29/20 24, 08/15/2023, 07/26/2021, Additional history exists Tobacco Screening 02/21/2025 02/22/2024 Mammogram 05/07/2025 05/08/2023, 03/28/2023 Dental X-Ray: Full Mouth 08/15/2026 08/15/2023, 11/04 Lipid Panel 11/27/2027 11/26/2022, 07/01/2021 Cervical Cancer Screening 12/19/2028 HPV/Cotest 12/19/2028 12/20/2023 Pap Smear 12/19/2028 12/20/2023 Zoster Vaccines (1 of 2) 11/26/2031 RSV Patients and Patients Aged 60 years or older (1 - 1-dose 75+ series) 2056 HIV Screening Completed 07/01/2021 Hepatitis C Screening Completed 07/01/2021 Influenza Vaccine Completed 12/01/2023, 2022 HIB Vaccines Aged Out No longer eligi ble based on patient's age to complete this topic HPV Vaccines Aged Out No longer eligi ble based on patient's age to complete this topic Hepatitis A Vaccines Aged Out No long er eligible based on patient's age to complete this topic IPV Vaccines Aged Out No longer eligi ble based on patient's age to complete this topic Meningococcal Vaccine Aged Out No cricket malick eligible based on patient's age to complete this topic Pneumococcal Vaccine: Pediatrics (0 to 5 Years) and At-Risk Patients (6 to 64 Years) Aged Out No longer eligible based on patient's age to complete this topic RSV under 20 months Aged Out No longe r eligible based on patient's age to complete this topic Rotavirus Vaccines Aged Out No longer eligible based on patient's age to complete this topic Procedures Procedure Name Priority Date/Time Associated Diagnosis Comments ADJUNCTIVE GENERAL SERVICES - PROFESSIONAL VISITS - CASE PRESENTATION, SUBSEQUENT TO DETAILED AND EXTENSIVE TREATMENT PLANNING Routine 02/22/2024 8:00 AM EST Dental caries 12 DO RESTORATIVE - RESIN-BASED COMPOSITE RESTORATIONS - DIRECT - RESIN-BASED COMPOSITE - TWO SURFACES, POSTERIOR Routine 02/22/2024 8:00 AM EST Dental caries 5 DO RESTORATIVE - RESIN-BASED COMPOSITE RESTORATIONS - DIRECT - RESIN-BASED COMPOSITE - TWO SURFACES, POSTERIOR Routine 02/22/2024 8:00 AM EST Dental caries ADJUNCTIVE GENERAL SERVICES - PROFESSIONAL VISITS - CASE PRESENTATION, SUBSEQUENT TO DETAILED AND EXTENSIVE TREATMENT PLANNING Routine 01/29/2024 11:00 AM EST Encounter for dental examination Open fracture of tooth, initial encounter INTRAORAL - PERIAPICAL FIRST RADIOGRAPHIC IMAGE Routine 01/29/2024 11:00 AM EST Encounter for dental examination Open fracture of tooth, initial encounter BITEWING - SINGLE RADIOGRAPHIC IMAGE Routine 01/29/2024 11:00 AM EST Encounter for dental examination Open fracture of tooth, initial encounter PERIODIC ORAL EVALUATION - ESTABLISHED PATIENT Routine 01/29/2024 11:00 AM EST Encounter for dental examination Open fracture of tooth, initial encounter THINPREP IMAGING PAP AND HPV MRNA E6/E7 Routine 12/20/2023 11:33 AM EDT Full PROPHYLAXIS - ADULT Routine 08/15/2023 8:00 AM EDT Dental plaque Dental calculus DIAGNOSTIC - DIAGNOSTIC IMAGING - INTRAORAL - COMPREHENSIVE SERIES OF RADIOGRAPHIC IMAGES Routine 08/15/2023 8:00 AM EDT Dental plaque Dental calculus Encounter for dental examination BI MAMMOGRAM DIAGNOSTIC TOMOSYNTHESIS RIGHT Routine 05/08/2023 1:15 PM EST LIPID PANEL, STANDARD Routine 11/26/2022 9:55 AM EDT Essential hypertension ZZZ HISTORICAL HEPATITIS C AB W/REFL TO HCV RNA, QN, PCR Routine 07/01/2021 3:59 PM EDT HIV 1/2 ANTIGEN/ANTIBODY, FOURTH GENERATION W/RFL Routine 07/01/2021 3:59 PM EDT from Last 3 Months or Most Recently Relevant to Health Maintenance Results * ThinPrep Imaging Pap and HPV mRNA E6/E7 (12/20/2023 11:33 AM EDT) HPV nRNA E6/E7 Not Detected Not Detected [facility] Comment:Methodology: Transcr iption-Mediated AmplificationThis assay detects E6/E7 viral messenger RNA (mRNA) from 14high-risk HPV types (16,18,31,33,35,39,45,51,52,56,58,59,66,68).Cervical sources are required for HPV testing.If a vaginal source from a patient who has had atotal hysterectomy with removal of cervix wassubmitted, please contact the testing laboratoryfor alternative testing options.For additional information, please refer tohttp://education.[employer]/faq/AKU317y3(This link if provided for information/educational purposes only.)THIS TEST WAS PERFORMED AT:[employer] [place] [phone] JEFFERSON MD SOURCE: SEE NOTE [facility] Comment:Cervix Report Status: TNP [facility] Clinical Information: SEE NOTE [facility] Comment:None given LMP: SEE NOTE [facility] Comment:NONE GIVEN Prev. PAP: SEE NOTE [facility] Comment:NONE GIVEN Prev. BX: SEE NOTE [facility] Comment:NONE GIVEN Statement Of Adequacy: SEE NOTE [facility] Comment:Satisfactory for hector luation.Endocervical/transformation zone component absent. General Categorization: [facility] Interpretation/Result: SEE NOTE [facility] Comment:Cytology Results: Ne gative for intraepitheliallesion or malignancy. Cytology Comment SEE NOTE [facility] Comment:This Pap test has be en evaluated with computerassisted technology. Roading Engineer: SEE NOTE [facility] Comment:SILVA, CT(ASCP)CT scre ening location: [place] [address] Review Roading Engineer: [facility] Pathologist [facility] PAP Infection [facility] See Note SEE NOTE [facility] Comment:EXPLANATORY NOTE:The Pap is a screening test for cervical cancer. It isnot a diagnostic test and is subject to false negativeand false positive results. It is most reliable when asatisfactory sample, regularly obtained, is submittedwith relevant clinical findings and history, and whenthe Pap result is evaluated along with historic andcurrent clinical information. 12/20/2023 11:3 3 AM EDT 12/20/2023 6:03 PM EDT Narrative [facility] - 12/22/2023 3:25 PM EDT SEE SCANNED RESULTS IN EMRCERVIX us Vee [facility] PATHOLOGY ORDERABLES Final Result [facility] [address] [place] [address] [phone] * BI Mammogram Diagnostic Tomosynthesis Right (05/08/2023 1:15 PM EST) Anatomical Region Laterality Modality Breast Right Mammography 05/08/2023 1:15 PM EST Narrative 05/08/2023 1:31 PM EST ? [facility] ? [address] ?[place] [address] ? Mammography Report ? Signed ? Patient: Quintero Camacho,Dalianys ?MR# ?? : [id number] ? : 1980 ?Acct:[id number] ? Age/Sex: 42 / F ?ADM Date: 05/08/23 ? Loc: HO.MAMMO ? Attending Dr: Patito De La O FILM PROJECTOR OPERATOR ? Ordering Physician: PATITO DE LA O NP ?Results: 2Benign Fin ?? dings ? Date of Service: 05/08/23 ?Follow Up: 1 Year From Orig ?? inal Mammogram ? Procedure(s): MM tomosynthesis diagnostic RT ?? Accession Number(s): [id number] ? cc: PATITO DE LA O NP ? EXAMINATION: ?? MM DIAGNOSTIC DIGITAL BREAST TOMOSYNTHESIS, RIGHT ? CLINICAL INFORMATION: ? Evaluate calcifications seen retroareolar and upper right breast on ?? baseline screening exam. ? COMPARISON: ?? Mammography: Baseline exam 03/28/2023. ? TECHNIQUE: ?? Digital breast tomosynthesis is performed in the following views: 2-D ?? spot magnification right CC and ML views x2. ? FINDINGS: ?? There are scattered areas of fibroglandular density (ACR BI-RADS breast ?? composition Category b). ? Calcifications seen in the right breast retroareolar and upper region ?? are loosely grouped, and majority appear to layer on the true lateral ?? ML views. Findings are consistent with benign milk of calcium. No ?? suspicious calcifications are identified. ? There are similar calcifications in a similar distribution in the left ?? breast, upon review of the baseline exam. ? MM/MM tomosynthesis diagnostic RT ?? IMPRESSION: ?? Calcifications in the right breast are benign. No further follow-up ?? recommended. ? Recommend the patient return to routine annual screening. ? ASSESSMENT: ? BI-RADS BI-RADS 2 - Benign Findings ? RECOMMENDATION: ?? 1 year F/U ? Results were provided to the patient at time of visit by the ?? technologist. ? This patient's information was entered into a reminder system with a ?? target due date for their next mammogram. ? Dictated By: ?Kale Guzman MD ? Signed By: ?<Electronically signed by Kale Guzman MD in OV> ?05/08/23 1327 ? DD/ 1315 ? TD/TT: ? Vault Worker: ? Procedure Note Ubaldo, Image - 05/08/2023 [facility] [address] [place] [address] Mammography Report Signed Patient: Cynthia ReddysMR# : [id number] : 1980Acct:[id number] Age/Sex: 42 / FADM Date: 05/08/23 Loc: HO.MAMMO Attending Dr: Patito De La O FILM PROJECTOR OPERATOR Ordering Physician: PATITO DE LA O NPResults: 2Benign Sumit acosta Date of Service: 05/08/23Follow Up: 1 Year From Orig inal Mammogram Procedure(s): MM tomosynthesis diagnostic RT Accession Number(s): [id number] cc: PATITO DE LA O NP EXAMINATION: MM DIAGNOSTIC DIGITAL BREAST TOMOSYNTHESIS, RIGHT CLINICAL INFORMATION: Evaluate calcifications seen retroareolar and upper right breast on baseline screening exam. COMPARISON: Mammography: Baseline exam 03/28/2023. TECHNIQUE: Digital breast tomosynthesis is performed in the following views: 2-D spot magnification right CC and ML views x2. FINDINGS: There are scattered areas of fibroglandular density (ACR BI-RADS breast composition Category b). Calcifications seen in the right breast retroareolar and upper region are loosely grouped, and majority appear to layer on the true lateral ML views. Findings are consistent with benign milk of calcium. No suspicious calcifications are identified. There are similar calcifications in a similar distribution in the left breast, upon review of the baseline exam. MM/MM tomosynthesis diagnostic RT IMPRESSION: Calcifications in the right breast are benign. No further follow-up recommended. Recommend the patient return to routine annual screening. ASSESSMENT: BI-RADS BI-RADS 2 - Benign Findings RECOMMENDATION: 1 year F/U Results were provided to the patient at time of visit by the technologist. This patient's information was entered into a reminder system with a target due date for their next mammogram. Dictated By: Kale Guzman MD Signed By: <Electronically signed by Kale Guzman MD in OV> 05/08/23 1327 DD/ 1315 TD/TT: Vault Worker: [facility] IM BI PROCEDURES Final Result * (ABNORMAL) Lipid Panel, Standard (11/26/2022 9:55 AM EDT) Triglycerides 90 <150 mg/dL [facility] Comment:Desirable Triglyceri de: less than 150 mg/dLBorderline High Triglyceride 150-199 mg/dLHigh Triglyceride: 200-499 mg/dLVery High Triglyceride: greater than or equal to 5OO mg/dL Cholesterol 140 <200 mg/dL [facility] Comment:Desirable Cholestero l: less than 200 mg/dLBorderline High Cholesterol: 200-239 mg/dLHigh Cholesterol: greater than 239 mg/dL LDL Cholesterol Calculated 89 <100 mg/dL [facility] Comment:Desirable LDL: less than 100 mg/dLNear Optimal/Above Optimal LDL: 110- 129 mg/dLBorderline High LDL: 130-159 mg/dLHigh LDL: 160-189 mg/dLVery High LDL: greater than or equal to 190 mg/dL HDL Cholesterol 33(L) >40 mg/dL [facility] Comment:Desirable HDL: great er than 40 mg/dL Note: This HDL assay may give artificially low results in patients with liver disease. Blood Venous blood specimen / Unknown 11/26/2022 9:55 AM EDT 11/26/2022 9:55 AM EDT Patito De La O ANP LAB BLOOD ORDERABLES Final Resul t [facility] [address] [place] [address] [phone] * HEPATITIS C AB W/REFL TO HCV RNA, QN, PCR (07/01/2021 3:59 PM EDT) HEPATITIS C ANTIBODY NON-REACT LIBAN NON-REACT LIBAN [facility] INDEX 0.66 <1.00 [facility] Comment: ?? HCV antibody was non-reactive. There is no laboratory ?? evidence of HCV infection. ?? In most cases, no further action is required. However, if recent HCV exposure is suspected, a test for HCV RNA (test code 55729) is suggested. ?? For additional information please refer to http://education.[employer]/faq/GBE01q0 (This link is being provided for informational/ educational purposes only.) ?? 07/01/2021 3:5 9 PM EDT Luanneclyde Salinas PRESENTATION SPECIALIST HISTORICAL/NON ORDERABLE LABS Final Result Performing Organization Address City/[facility]/ZIP Co de Phone Number [facility] [address] * HIV 1/2 ANTIGEN/ANTIBODY,FOURTH GENERATION W/RFL (07/01/2021 3:59 PM EDT) HIV-1/2 ANTIGEN AND ANTIBODIES, 4TH GENERATION W/ REFLEX NON-REACT LIBAN NON-REACT LIBAN [facility] Comment: HIV-1 antigen and HIV-1/HIV-2 antibodies were not detected. There is no laboratory evidence of HIV infection. ?? PLEASE NOTE: This information has been disclosed to you from records whose confidentiality may be protected by state law. ??If your state requires such protection, then the state law prohibits you from making any further disclosure of the information without the specific written consent of the person to whom it pertains, or as otherwise permitted by law. A general authorization for the release of medical or other information is NOT sufficient for this purpose. ? For additional information please refer to http://education.[employer]/faq/AHE278 (This link is being provided for informational/ educational purposes only.) ? The performance of this assay has not been clinically validated in patients less than 2 years old. ?? 07/01/2021 3:59 PM EDT us Luanne Salinas PRESENTATION SPECIALIST LAB BLOOD ORDERABLES Final Res ult [facility] [address] from Last 3 Months or Most Recently Relevant to Health Maintenance Insurance [facility] ST[facility] ADULT Care Teams Radio Equipment Repairer Relationship Specialty Start Date End Date Patito De La O ANP [address] [place] [id number] PCP - General Family Medicine 10/13/22
--- OUTSIDE RECORDS SUMMARY | 2024-04-02 09:10 | XMS_ITS | Encounter Summary ---
Author Organization [employer] Address [address] [place] [address] Care Team Providers Care Account Clerk Name Role Phone Reema Grant LIAM Primary Care Provider [phone] Reason for Visit * Reason Onset Date Comments Med Refill 02/08/2024 Encounter Details Date Type Department Care Team ([facility] st Contact Info) Description 02/08/2024 Refill [facility] [address] [place] [address] Marshal Woody MD [address] [place] [address] Social History Tobacco Use Types Packs/Day Years Used Date Smoking Tobacco: Never Passive Smoke Exposure: Never Smokeless Tobacco: Never Alcohol Use Standard Drinks/Week Comments Not Currently [...] Don't know 01/03/2022 10 :21 AM EDT documented as of this encounter Plan of Treatment Upcoming Encounters Date Type Department Care Team (Late st Contact Info) Description 04/23/2024 8:00 AM EST Office Visit [facility] [address] [place] [address] Selene Boone documented as of this encounter Visit Diagnoses Not on filedocumented in this encounter Additional Health Concerns Assessment Noted Time PHQ-9 Depression Total Score: 7 12/01/19 24 9:38 AM EDT documented as of this encounter Care Teams Account Clerk Relationship Specialty Start Date End Date Reema Grant ANP [address] [place] [address] PCP - General Family Medicine 10/13/22 documented as of this encounter
--- OUTSIDE RECORDS SUMMARY | 2024-04-02 09:10 | XMS_ITS | Encounter Summary ---
Author Organization [employer] Address [address] [facility] 7[address] [place] [address] Care Team Providers Care Scarrer Name Role Phone Reema Grant Primary Care Provider [phone] Reason for Visit * Reason Comments Med Refill Encounter Details Date Type Department Care Team ([facility] st Contact Info) Description 03/10/2024 Refill [facility] MEDICINE [address] [place], [place] [phone] Reema Grant ANP [address] [place], [place] [phone] Numbness and tingling in both hands; SUNIL (generalized anxiety disorder) Social History Tobacco Use Types Packs/Day Years [...] your housing situation today? I have donaldo mednez 12/01/[address] you li [...] Description 04/23/2024 8:00 AM EST Office Visit [facility] ADULT DENTAL [address] [place] [address] Selene Boone documented as of this encounter Visit Diagnoses Diagnosis Numbness and tingling in both hands SUNIL (generalized anxiety disorder) Generalized anxiety disorder documented in this encounter Additional Health Concerns Assessment Noted Time PHQ-9 Depression Total Score: 7 12/01/19 24 9:38 AM EDT documented as of this encounter Care Teams Scarrer Relationship Specialty Start Date End Date Reema Grant ANP [address] [place] [address] PCP - General Family Medicine 10/13/22 documented as of this encounter
--- OUTSIDE RECORDS SUMMARY | 2024-04-02 09:10 | XMS_ITS | Encounter Summary ---
Author Organization [employer] Address [address] [facility] 7[address] [place] [address] Care Team Providers Care Insect Control Aide Name Role Phone FrancisTrudy cabrera Malina REICH Primary Care Provider [phone] Reema Grant Primary Care Provider [phone] Reason for Visit * Reason Comments Med Change Request Encounter Details Date Type Department Care Team (Late st Contact Info) Description 03/14/2022 Refill [facility] [address] [place] [address] Glenda Burgess FNP Essential hypertension; Primary hypertension Social History Tobacco Use Types Packs/Day Years Used Date Smoking Tobacco: Never Smokeless Tobacco: Never Comments Unknown Sex and Gender Information Value Date Recorded Sex Assigned at Female 01/03/2022 10:21 AM EDT Legal Sex Female 10:21 AM EDT Gender Identity Female 01/03/2022 10:21 AM EDT Sexual Orientation Don't know 01/03/2022 10 :21 AM EDT COVID-19 Exposure Response Date Recorded In the last 10 days, have yo u been in contact with someone who was confirmed or suspected to have Coronavirus/COVID-19? No / Unsure 03/14/2022 8:49 AM EST documented as of this encounter Miscellaneous Notes * Telephone Encounter - Chanda Randall RN - 03/17/2022 3:47 PM EST Left message for patient to call back Walk in RN. * Telephone Encounter - RACHANA Mcclelland - 03/14/2022 5:08 PM EST Approving, but needs appt for additional refills. documented in this encounter Plan of Treatment Upcoming Encounters Date Type Department Care Team (Late st Contact Info) Description 04/23/2024 8:00 AM EST Office Visit [facility] ADULT DENTAL [address] [place] [address] Selene Boone documented as of this encounter Visit Diagnoses Diagnosis Essential hypertension Unspecified essential hypertension Primary hypertension Unspecified essential hypertension documented in this encounter Care Teams Insect Control Aide Relationship Specialty Start Date End Date Trudy Blanco FNP PCP - General Family Medicine 10/31/21 08/24/22 Reema Grant ANP [address] [place] [address] PCP - General Family Medicine 10/13/22 documented as of this encounter
--- OUTSIDE RECORDS SUMMARY | 2024-04-02 09:10 | XMS_ITS | Encounter Summary ---
Author Organization [employer] Address [address] [place] [address] [address] [place] [address] Care Team Providers Care Bed And Breakfast Operator Name Role Phone Trudy Blanco Primary Care Provider [phone] Reema Grant Primary Care Provider [phone] Encounter Details Date Type Department Care Team (Latest Contact Info) Description 07/26/2021 Abstract [facility] Dental, Provider, DDS Social History Tobacco Use Types Packs/Day Years Used Date Smoking Tobacco: Never Assessed Comments Unknown Sex and Gender Information Value [...] Description 04/23/2024 8:00 AM EST Office Visit [facility] ADULT DENTAL [address] [place] [address] Selene Boone documented as of this encounter Visit Diagnoses Not on filedocumented in this encounter Care Teams Bed And Breakfast Operator Relationship Specialty Start Date End Date Trudy Blanco FNP PCP - General Family Medicine 10/31/21 08/24/22 Reema Grant ANP [address] [place] [address] PCP - General Family Medicine 10/13/22 documented as of this encounter
== END 2024-04-02 08:53 | disposition home or self-care (01) ==
LOC: HO.MAMMO 08:52
PROVIDERS: PCP Nurse Practitioner Primary Care; Visit Provider Nurse Practitioner Primary Care
DX: Z12.31 Encounter for screening mammogram for malignant neoplasm of breast (principal)
CPT/HCPCS: 77063; 77067

== ENCOUNTER 2024-12-12 10:08 | Outpatient (REF) | payer MEDICAID, SELFPAY ==
[2024-12-13 03:30] LABS: Bacterial Vaginosis PCR POSITIVE (Negative); Candida Group PCR NOT DETECTED (Not Detect); Candida glab krusei PCR NOT DETECTED (Not Detect); Trichomonas vaginalis PCR NOT DETECTED (Not Detect)
[2024-12-13 12:28] LABS: Follicle Stimulating Hormone 7.8 mIU/mL
[2024-12-19 04:14] LABS: Estradiol Ultra Sensitive 137 pg/mL
== END 2024-12-12 10:09 | disposition home or self-care (01) ==
LOC: HO.HHCL 10:08
PROVIDERS: PCP Nurse Practitioner Primary Care; Visit Provider Advanced Practice Midwife
DX: Z20.2 Contact with and (suspected) exposure to infections with a predominantly sexual mode of transmission (principal); N89.8 Other specified noninflammatory disorders of vagina; N92.6 Irregular menstruation, unspecified
CPT/HCPCS: 36415; 81515; 82670; 83001; 84443

== ENCOUNTER 2025-02-03 08:08 | Outpatient (REF) | payer MEDICAID, SELFPAY ==
--- OUTSIDE RECORDS SUMMARY | 2025-02-03 08:18 | XMS_ITS | Encounter Summary ---
Author Organization [employer] Address [address] [facility] 7[address] [place] [address] Care Team Providers Care Test Clerk Name Role Phone Reema Grant Primary Care Provider [phone] Reason for Visit * Reason Onset Date Comments Med Refill 04/08/2024 Encounter Details Date Type Department Care Team (Late st Contact Info) Description 04/08/2024 Refill [facility] MEDICINE [address] [place], [place] [phone] Reema Grant ANP [address] [place] [address] Primary hypertension Social History Tobacco Use Types [...] is your housing situation today? I have donaldofaith mendez 12/01/[address] you [...] Care Team (Late st Contact Info) Description 02/10/2025 10:30 AM EST Clinical Support [facility] MEDICINE [address] [place] [address] 05/01/2025 12:45 PM EST Office Visit [facility] ADULT DENTAL [address] [place] [address] [place], Halina [address] [place] [address] documented as of this encounter Visit Diagnoses Diagnosis Primary hypertension Unspecified essential hypertension documented in this encounter Additional Health Concerns Assessment Noted Time PHQ-9 Depression Total Score: 7 12/01/19 24 9:38 AM EDT documented as of this encounter Care Teams Test Clerk Relationship Specialty Start Date End Date Reema Grant ANP [address] [place] [address] PCP - General Family Medicine 10/13/22 documented as of this encounter
--- OUTSIDE RECORDS SUMMARY | 2025-02-03 08:18 | XMS_ITS | Encounter Summary ---
Author Organization [employer] Address [address] [facility] [address] [place] [address] Care Team Providers Care Logging Crew Supervisor Name Role Phone Reema Grant Primary Care Provider [phone] Reason for Visit * Reason Onset Date Comments Med Refill 04/08/2024 Encounter Details Date Type Department Care Team ([facility] st Contact Info) Description 04/08/[address] [facility] MEDICINE [address] [place], [place] [phone] Reema Grant ANP [address] [place] [address] SUNIL (generalized anxiety disorder) Social History Tobacco [...] Description 02/10/2025 10:30 AM EST Clinical [facility] MEDICINE [address] [place] [address] 05/01/2025 12:45 PM EST Office Visit [facility] ADULT DENTAL [address] [place] [address] [place] [address] [place] [address] documented as of this encounter Visit Diagnoses Diagnosis SUNIL (generalized anxiety disorder) Generalized anxiety disorder documented in this encounter Additional Health Concerns Assessment Noted Time PHQ-9 Depression Total Score: 7 12/01/19 24 9:38 AM EDT documented as of this encounter Care Teams Logging Crew Supervisor Relationship Specialty Start Date End Date Reema Grant ANP [address] [place] [address] PCP - General Family Medicine 10/13/22 documented as of this encounter
--- OUTSIDE RECORDS SUMMARY | 2025-02-03 08:18 | XMS_ITS | Clinical Summary ---
Author Organization [facility] Address [address] [facility] [address] [place] [phone] Phone Care Team Providers Care Melt House Centrifugal Operator Name Role Phone Pcp, Unknown Primary Care Provider Unavailabl e Allergies Active Allergy Reactions Criticality Noted Date Comments Shellfish Containing Products Anaphylaxis High 09/28 Medications losartan (COZAAR) 50 MG tablet Take 50 mg by mouth daily. Active Social History Tobacco Use Types Packs/Day Years Used Date Smoking Tobacco: Never Passive Smoke Exposure: Never Tobacco Cessation:Counseling Given: Not Answered Alcohol Use Standard Drinks/Week Comments Never 0 (1 standard drink = 0.6 oz pur e alcohol) Education Answer Date Recorded Are you interested in more education? Not on don e 07/01/2022 Are you concerned about learning? Not on file 07/01/2022 No 07/01/2022 No 07/01/2022 Digital Access Answer Date Recorded No 07/30/2022 No 07/30/2022 Reliable internet access at home? Not on file 07/30/2022 Device with a working camera? Not on file Intimate Partner Violence Answer Date R ecorded Are you denied basic needs s uch as food, clothing, or medical care? No 09/28/2022 In the past 12 months have y ou been in a relationship with a person who hurts, threatens, or tries to control you? No 09/28/2022 Are you denied basic needs s uch as food, clothing, or medical care? No 09/28/2022 In the past 12 months have y ou been in a relationship with a person who hurts, threatens, or tries to control you? No 09/28/2022 Comments No Sex and Gender Information Value Date Recorded Sex Assigned at Female 06/22/2022 1:34 PM EDT Legal Sex Female 2:57 PM EDT Gender Identity Female 06/22/2022 1:34 PM EDT Sexual Orientation Not on file Last Filed Vital Signs Vital Sign Reading Time Taken Comments Blood Pressure 117/72 09/28/2022 10:40 AM EDT Pulse 67 09/28/2022 7:48 AM EDT Temperature 36.7 C (98.1 F) 09/28/2022 7:48 AM EDT Respiratory Rate 20 09/28/2022 7:48 AM EDT Oxygen Saturation 98% 09/28/2022 10:40 AM EDT Inhaled Oxygen Concentration - - Weight 114.3 kg (252 lb) 09/28/2022 7:48 AM EDT Height 162.6 cm (5' 4 ) 09/28/2022 7:48 AM EDT Body Mass Index 43.26 09/28/2022 7:48 AM EDT Plan of Treatment Health Maintenance Due Date Last Done Comments DEPRESSION SCREENING 1993 HEPATITIS C SCREENING 11/26/1999 HIV ONE-TIME SCREENING (18-6 5 YEARS) 11/26/1999 PAP SMEAR 2002 SMOKING STATUS SCREENING (On ce After 26 Yrs) 11/26/2007 MAMMOGRAM 2021 CREATININE LEVEL 09/29/2023 09/28/2022, 06/22/2022 POTASSIUM LEVEL 09/29/2023 09/28/2022, 06/22/2022 INFLUENZA VACCINE (#1) 2024 COVID-19 VACCINE ( - 2024-2 6 season) 2024 01/23/2021, 03/24/2020, 03/03/2020 Adult Td,Tdap Booster 11/18/2024 11/18/2014 SCREENING FOR DIABETES 09/28/2025 09/28/2022 HEPATITIS A VACCINES Aged Out No long er eligible based on patient's age to complete this topic HIB VACCINES Aged Out No longer eligi ble based on patient's age to complete this topic MENINGOCOCCAL VACCINES (ACWY) Aged Out No longer eligible based on patient's age to complete this topic MENINGOCOCCAL VACCINES (B) Aged Out N o longer eligible based on patient's age to complete this topic PNEUMOCOCCAL VACCINES (0-49 years) Aged Out No longer eligible b ased on patient's age to complete this topic Medical Devices Not on file Procedures Procedure Name Priority Date/Time Associated Diagnosis Comments BASIC METABOLIC PANEL (BMP) STAT 09/28/2022 8:39 AM EDT from Last 3 Months or Most Recently Relevant to Health Maintenance Results * (ABNORMAL) Basic metabolic panel (09/28/2022 8:39 AM EDT) SODIUM 140 133 - 146 mmol/L [facility] CHLORIDE 106 96 - 108 mmol/L [facility] POTASSIUM 3.9 3.3 - 5.1 mmol/L [facility] CO2 26 21 - 35 mmol/L [facility] BUN 13 6 - 19 mg/dL [facility] CREATININE 0.70 0.5 - 1.5 mg/dL [facility] GLUCOSE 121(H) 70 - 99 mg/dL [facility] CALCIUM 9.1 8.4 - 10.3 mg/dL [facility] EGFR 112 >59 mL/min/1.7 3m2 [facility] Comment:Estimated glomerular filtration rate calculated using the CKD-EPI refit equation. ANION GAP 12 10 - 20 mmol/L [facility] Blood 09/28/2022 8:39 AM EDT 09/28/2022 8:42 AM EDT us Ren Senior MD LAB BLOOD BKR ORDERABLES Final Result [address] [id number] from Last 3 Months or Most Recently Relevant to Health Maintenance Insurance [facility] [address] [place] [address] [employer] [employer] [address] [place] [address] [employer] [address] [place] [place] [address] [employer] Care Teams Melt House Centrifugal Operator Relationship Specialty Start Date End Date Pcp, Unknown PCP - General 06/23/19 Additional Source Comments The information contained in this document represents components of the legal health record. It is not the complete legal health record.[facility]
--- OUTSIDE RECORDS SUMMARY | 2025-02-03 08:18 | XMS_ITS | Clinical Summary ---
Author Organization [employer] Address [address] [facility] [address] [place] [address] Care Team Providers Care Fur Vault Attendant Name Role Phone Patito De La O LIAM Primary Care Provider [phone] Allergies Active Allergy Reactions Criticality Noted Date Comments Avocado Anaphylaxis High 01/08/2024 Hoover Anaphylaxis High 10/17/2023 Latex Rash Low 11/15/2017 Pistachio Nut Extract Anaphylaxis High 10/25/2024 Shellfish Protein-Containing Drug Products Anaphylaxis High 11/15/2017 Medications * This document contains information received from the source organization and may not represent a complete record from that organization. Blood Pressure Monitoring (Omron 3 Series BP Monitor) device USE TO CHECK BLOOD PRESSURE DAILY DIRECTED 07/02/19 22 Active EPINEPHrine (Epipen) 0.3 MG/0.3ML injection syringeIndicatio ns:Food allergy Inject 0.3 mL (0.3 mg) as directed 1 (one) time for 1 dose. use as directed for allergic reaction and then call 911 2 each 1 12/01/19 24 Active hydrOXYzine HCl (Atarax) 25 MG tabletIndication s:SUNIL (generalized anxiety disorder) TAKE 1 TABLET BY MOUTH IF NEEDED IN THE MORNING, AT NOON, AND AT BEDTIME FOR ANXIETY. 60 tablet 11/06/19 25 Active losartan (Cozaar) 100 MG tabletIndication s:Essential hypertension Take 1 tablet (100 mg) by mouth Once per day. 90 tablet 3 01/11/20 25 026 Active propranolol (Inderal) 10 MG tabletIndication s:Anxiety Take 1 tablet as needed for anxiety up to TID 90 tablet 1 01/11/20 25 Active ibuprofen 600 MG tabletIndication s:Numbness and tingling in both hands TAKE 1 TABLET BY MOUTH UP TO 3 TIMES A DAY WITH FOOD NEEDED FOR PAIN 60 tablet 01/28/20 25 Active losartan (Cozaar) 50 MG tabletIndication s:Primary hypertension TAKE 1 TABLETS BY MOUTH EVERY DAY FOR HIGH BLOOD PRESSURE 90 tablet 1 07/09/19 25 025 Discontinued(Do se adjustment) ibuprofen 600 MG tabletIndication s:Numbness and tingling in both hands TAKE 1 TABLET BY MOUTH UP TO 3 TIMES A DAY WITH FOOD NEEDED FOR PAIN 60 tablet 10/04/19 25 025 Discontinued ibuprofen 600 MG tabletIndication s:Numbness and tingling in both hands TAKE 1 TABLET BY MOUTH UP TO 3 TIMES A DAY WITH FOOD NEEDED FOR PAIN 60 tablet 01/10/20 25 025 Discontinued Active Problems Problem Noted Date Diagnosed Date Anxiety 01/10/2025 Dental calculus 10/25/2024 Dental plaque 10/25/2024 Gingival bleeding 10/25/2024 Missing teeth, acquired 10/25/2024 Migraine 11/23/2022 Obstructive sleep apnea syndrome 10/13/2022 [...] Encounters Date Type Department Care Team Description 01/[facility] [address] [place] [address] [place] [address] Patito De La O ANP Numbness and tingling in both hands 01/10/2025 9:45 AM EST Office Visit [facility] [place] [address] Patito De La O ANP Essential hypertension (Primary Dx); Healthcare maintenance; Obstructive sleep apnea syndrome; Class 3 severe obesity due to excess calories with serious comorbidity and body mass index (BMI) of 45.0 to 49.9 in adult (HCC); Dietary counseling; Exercise counseling; Anxiety; Encounter for immunization; Need for hepatitis B screening test; Family history of thyroid cancer 01/10/2025 Travel 01/09/2025 Travel 01/08/2025 Telephone [facility] [place] [address] Patito De La O ANP chart prep 01/08/2025 Refill [facility] [place] [address] Patito De La O ANP Numbness and tingling in both hands 01/03/2025 Patient Outreach [facility] [place] [address] Patito De La O ANP Pre-visit Planning (SDOH screening is completed) 01/02/2025 Telephone [facility] [place] [address] Patito De La O ANP Results 12/19/2024 Results Follow-Up [address] [address] Vee Monsalve CNM Estradiol 12/13/2024 Orders Only [address] [address] Vee Monsalve CNM 12/13/2024 Results Follow-Up [address] [address] Vee Monsalve CNM Bacterial Vaginosis 12/12/2024 9:45 AM EDT Office Visit [facility] [place] [address] Vee Monsalve CNM Irregular menstruation (Primary Dx); Vaginal dryness 12/12/2024 Orders Only [address] [address] NatyhiramVee rooney, CNMilla 12/12/2024 Travel 12/11/2024 Travel 12/11/2024 Telephone [facility] [address] [facility] [place], [place] [phone] Patito De La O ANP chartprep 11/05/2024 Telephone [facility] [address] [facility] [place] [address] Patito De La O ANP January recall from Last 3 Months Immunizations Immunization Administration Dates Next Due Influenza injectable quadrivalent preservative f ree 2022 Influenza, seasonal, injectable, preservative fr ee 01/10/2025,12/01/2023 Pfizer Covid-19 Vaccine 12+ 01/23/2021 Tdap 01/10/2025,11/18/2014 Family History Medical History Relation Name Comments Hypertension Father Bartolome Quintero Thyroid cancer Father's Sister Hypertension Other Kidney disease Other Mental illness Other Thyroid cancer Other Breast cancer Neg Hx Colon cancer Neg Hx Ovarian cancer Neg Hx Relation Name Status Comments Father Bartolome Quintero Alive Father's Sister Other Social History Tobacco Use Types Packs/Day Years Used Date Smoking Tobacco: Never Passive Smoke Exposure: Never Smokeless Tobacco: Never Tobacco Cessation:Counseling Given: Not Answered Alcohol Use Standard Drinks/Week Comments Not Currently 0 (1 standard drink = 0.6 oz pur e alcohol) Depression Answer Date Recorded Patient Health Questionnaire-9 Score 6 12/12/2024 Patient Health Questionnaire-9 Score 6 12/12/2024 Last PHQ-9: Questionnaire Data Not on file 1 Housing Stability Answer Date Recorded What is your housing situation today? I have donaldo mendez 12/12/[address] you li ve. Do you have problems with any of the following? None of the above 12/12/2024 Food Insecurity Answer Date Recorded Within the past 12 months, y ou worried that your food would run out before you got money to buy more: Sometimes True 2024 Within the past 12 months,th e food you bought just didn't last and you didn't have enough money to get more: Sometimes True 12/12/2024 Transportation Answer Date Recorded In the past 12 months, has l ack of transportation kept you from medical appts, meetings, work or from getting things needed for daily living? No 12/12/2024 Utilities Answer Date Recorded In the past 12 months, has t he electric, gas, oil or water company threatened to shut off services in your home? No 12/12/2024 Depression Answer Date Recorded Patient Health Questionnaire-2 Score 2 12/12/2024 Internet Access Answer Date Recorded Internet Access Q1 Yes 12/12/2024 Internet Access Q2 Not on file 12/12/2024 Comments Unknown Intention Date Recorded No desire to become (finding) 1 Sex and Gender Information Value Date Recorded Sex Assigned at Female 01/03/2022 10:21 AM EDT Legal Sex Female 10:21 AM EDT Gender Identity Female 01/03/2022 10:21 AM EDT Sexual Orientation Don't know 01/03/2022 10 :21 AM EDT Last Filed Vital Signs Vital Sign Reading Time Taken Comments Blood Pressure 144/96 01/10/2025 10:34 AM EST Pulse 68 01/10/2025 10:02 AM EST Temperature 36.1 C (97 F) 01/10/2025 10:02 AM EST Respiratory Rate 20 01/10/2025 10:02 AM EST Oxygen Saturation 100% 12/12/2024 9:46 AM EDT Inhaled Oxygen Concentration - - Weight 131 kg (289 lb 2 oz) 01/10/2025 10:02 AM EST Height 162.6 cm (5' 4 ) 01/10/2025 10:02 AM EST Body Mass Index 49.63 01/10/2025 10:02 AM EST Plan of Treatment Upcoming Encounters Date Type Department Care Team (Late st Contact Info) Description 02/10/2025 10:30 AM EST Clinical Support [facility] [address] [place] [address] 05/01/2025 12:45 PM EST Office Visit [facility] ADULT DENTAL [address] [place] [address] Halina Kingsley [address] [place] [address] Health Maintenance Due Date Last Done Comments Alcohol/Substance Use Screening 1993 HPV Vaccines (1 - 3-dose series) 1996 Hepatitis B Vaccines (1 of 3 - 19+ 3-dose series) 2000 Dental Oral Exam 04/28/2025 10/25/2024, , 08/15/2023, Additional history exists Dental Prophylaxis 04/28/2025 10/25/2024, 0 04/23/2024, 08/15/2023, Additional history exists Dental X-Ray: Bitewings 10/26/2025 10/26/19, 01/29/2024, 08/15/2023, Additional history exists Depression Screening 12/12/2025 12/12/2024, 12/13/19 Family Planning (PISQ) 12/12/2025 12/12/2024 SDOH Screening 12/12/2025 12/12/2024 Disability Screening 01/09/2026 01/09/2025 COVID-19 Vaccine ( season) 2026 01/23/2021, 03/24/2020, 03/03/2020 Postponed from 11/04/2024 (Patient Refused) Tobacco Screening 01/10/2026 01/10/2025 Mammogram 04/02/2026 04/02/2024, 03/07, 05/08/2023, Additional history exists Dental X-Ray: Full Mouth 08/15/2026 08/15/2023, 11/04 Lipid Panel 11/27/2027 11/26/2022, 07/01/2021 Cervical Cancer Screening 12/19/2028 HPV/Cotest 12/19/2028 12/20/2023 Pap Smear 12/19/2028 12/20/2023 Zoster Vaccines (1 of 2) 11/26/2031 DTaP/Tdap/Td Vaccines (3 - Td or Tdap) 01/10/2035 01/10/2025, 11/18/2014 RSV Patients and Patients Aged 60 years or older (1 - 1-dose 75+ series) 2056 HIV Screening Completed 07/01/2021 Hepatitis C Screening Completed 07/01/2021 Influenza Vaccine Completed 01/10/2025, , 2022 HIB Vaccines Aged Out No longer eligi ble based on patient's age to complete this topic Hepatitis A Vaccines Aged Out No long er eligible based on patient's age to complete this topic IPV Vaccines Aged Out No longer eligi ble based on patient's age to complete this topic Meningococcal B Vaccine Aged Out No l onger eligible based on patient's age to complete this topic Meningococcal Vaccine Aged Out No cricket malick eligible based on patient's age to complete this topic Pneumococcal Vaccine: Pediatrics (0 to 5 Years) and At-Risk Patients (6 to 49) Years Aged Out No longer eligible based on patient's age to complete this topic RSV under 20 months Aged Out No longe r eligible based on patient's age to complete this topic Rotavirus Vaccines Aged Out No longer eligible based on patient's age to complete this topic Procedures Procedure Name Priority Date/Time Associated Diagnosis Comments ESTRADIOL Routine 12/12/2024 10:34 AM EDT Irregular menstruation FSH Routine 12/12/2024 10:34 AM EDT Irregular menstruation TSH W/REFLEX TO FT4 Routine 12/12/2024 1 0:34 AM EDT Irregular menstruation BACTERIAL VAGINOSIS PANEL Routine 12/12/2024 10:30 AM EDT PROPHYLAXIS - ADULT Routine 10/25/2024 9 :00 AM EDT Dental calculus Dental plaque BITEWINGS - 4 RADIOGRAPHIC IMAGES Routine 10/25/2024 9:00 AM EDT Dental calculus Dental plaque PERIODIC ORAL EVALUATION - ESTABLISHED PATIENT Routine 10/25/2024 9:00 AM EDT Dental calculus Dental plaque Gingival bleeding Missing teeth, acquired Encounter for dental examination BI MAMMOGRAM SCREENING TOMOSYNTHESIS BILATERAL Routine 04/02/2024 9:00 AM EST THINPREP IMAGING PAP AND HPV MRNA E6/E7 Routine 12/20/2023 11:33 AM EDT INTRAORAL - COMPLETE SERIES OF RADIOGRAPHIC IMAGES Routine 08/15/2023 8:00 AM EDT Dental plaque Dental calculus Encounter for dental examination LIPID PANEL, STANDARD Routine 11/26/2022 9:55 AM EDT Essential hypertension ZZZ HISTORICAL HEPATITIS C AB W/REFL TO HCV RNA, QN, PCR Routine 07/01/2021 3:59 PM EDT HIV 1/2 ANTIGEN/ANTIBODY, FOURTH GENERATION W/RFL Routine 07/01/2021 3:59 PM EDT from Last 3 Months or Most Recently Relevant to Health Maintenance Results * TSH W/Reflex to FT4 (12/12/2024 10:34 AM EDT) TSH reflex Free T4 1.05 0.32 - 4.0 uIU/mL [facility] Blood Venous blood specimen / Unknown 12/12/2024 10:34 AM EDT 12/12/2024 10:34 AM EDT [facility] BLOOD ORDERABLES Zenobia l Result Performing Organization Address City/[facility]/ZIP Co de Phone Number [facility] [address] [place] [phone] * Estradiol (12/12/2024 10:34 AM EDT) Estradiol Ultra Sensitive 137 pg/mL [facility] Comment:Female Reference Ran ges for Estradiol, Ultrasensitive (pg/mL): Follicular Phase: 39-375 Luteal Phase: 48-440 Postmenopausal Phase: < or = 10This test was developed and its analytical performancecharacteristics have been determined by [employer].It has not been cleared or approved by the FDA. This assayhas been validated pursuant to the CLIA regulations and isused for clinical purposes.THIS TEST WAS PERFORMED AT:[employer] [id number] [place] [id number] ZHANG MD,PHD,LAM Blood Venous blood specimen / Unknown 12/12/2024 10:34 AM EDT 12/12/2024 10:34 AM EDT Vee Monsalve [facility] BLOOD ORDERABLES Zenobia l Result [facility] [address] [place] [address] [phone] * FSH (12/12/2024 10:34 AM EDT) Follicle Stimulating Hormone 7.8 mIU/mL [facility] Comment:Reference Range Foll icular Phase 2.5-10.2 Mid-cycle Peak 3.1-17.7 Luteal Phase 1.5- 9.1 Postmenopausal 23.0-116.3THIS TEST WAS PERFORMED AT:[employer] [place] [id number] JEFFERSON MD Blood Venous blood specimen / Unknown 12/12/2024 10:34 AM EDT 12/12/2024 10:34 AM EDT Vee [facility] LAB BLOOD ORDERABLES Zenobia l Result Performing Organization Address [facility] de Phone Number [facility] [address] [place] [phone] * (ABNORMAL) Bacterial Vaginosis (12/12/2024 10:30 AM EDT) Pathologist [facility] TRICHOMONAS VAGINALIS DETECTION BY PCR NOT DETECTED Not Detect [facility] BACTERIAL VAGINOSIS DETECTION BY PCR POSITIVE(A) Negative [facility] Comment:The BV organism targ ets of the Xpert Xpress MVP test can becommensal in women; Xpert Xpress MVP positive results forbacterial vaginosis should be considered in conjunction withother clinical and patient information to determine thedisease status. Organisms that are not detected by the XpertXpress MVP test have also been reported to be associatedwith BV and aerobic vaginitis.The Xpert Xpress MVP test performance has not been evaluatedin patients under the age of 14. BRINDA GROUP DETECTION BY PCR NOT DETECTED Not Detect [facility] Brinda glab krusei PCR NOT DETECTED Not Detect [facility] 12/12/2024 10:3 0 AM EDT 12/12/2024 7:21 PM EDT us Vee Alfonsouzma CN LAB MICROBIOLOGY - GENERA L ORDERABLES Final Result [facility] [address] [place] [address] [phone] * BI Mammogram Screening Tomosynthesis Bilateral (04/02/2024 9:00 AM EST) Anatomical Region Laterality Modality Breast Bilateral Mammography 04/02/2024 9:00 AM EST Narrative 04/11/2024 8:04 AM EST [facility] [address] [place] [address] Mammography Report Signed Patient: Robert Redd MR# : [id number] : 1980 Acct:[id number] Age/Sex: 43 / F ADM Date: 04/02/24 Loc: HO.MAMMO Attending Dr: Patito De La O NP Ordering Physician: PATITO DE LA O NP Results: 1Negative Date of Service: 04/02/24 Follow Up: 1 Year From Orig inal Mammogram Procedure(s): MM tomosynthesis screening BI Accession Number(s): [id number] cc: PATITO DE LA O NP EXAMINATION: MM SCREENING DIGITAL BREAST TOMOSYNTHESIS, BILATERAL CLINICAL INFORMATION: Screening. Asymptomatic. COMPARISON: Mammography: Comparison is made with available priors TECHNIQUE: Digital breast mammography with tomosynthesis is performed in both the craniocaudal and mediolateral oblique views along with computer-aided detection (CAD). FINDINGS: The breasts are heterogeneously dense, which may obscure small masses (ACR BI-RADS breast composition Category c). There are no significant masses, abnormal calcifications, or other abnormalities. MM/MM tomosynthesis screening BI IMPRESSION: No mammographic evidence of malignancy. ASSESSMENT: BI-RADS BI-RADS 1 - Negative RECOMMENDATION: Routine annual mammography screening. 1 year F/U This examination should not preclude the clinical evaluation of a suspicious palpable abnormality. This patient's information was entered into a reminder system with a target due date for their next mammogram. Electronically signed by: Laurie Bartlett DO 04/11/2024 08:01 AM EST RP Dictated By: Laurie Bartlett DO Signed By: <Electronically signed by Laurie Bartlett DO in OV> 04/11/24 08 DD/ 09 TD/TT: 04/02/24 09 Grout Machine Tender: Procedure Note Donotuseinterpreter, Image - [facility] [address] [place], [place] [address] Mammography Report Signed Patient: Cynthia ReddysMR# : [id number] : 1980Acct:[id number] Age/Sex: 43 / FADM Date: 04/02/24 Loc: HO.MAMMO Attending Dr: Patito De La O NP Ordering Physician: PATITO DE LA O NPResults: 1Negative Date of Service: 04/02/24Follow Up: 1 Year From Orig inal Mammogram Procedure(s): MM tomosynthesis screening BI Accession Number(s): [id number] cc: PATITO DE LA O NP EXAMINATION: MM SCREENING DIGITAL BREAST TOMOSYNTHESIS, BILATERAL CLINICAL INFORMATION: Screening. Asymptomatic. COMPARISON: Mammography: Comparison is made with available priors TECHNIQUE: Digital breast mammography with tomosynthesis is performed in both the craniocaudal and mediolateral oblique views along with computer-aided detection (CAD). FINDINGS: The breasts are heterogeneously dense, which may obscure small masses (ACR BI-RADS breast composition Category c). There are no significant masses, abnormal calcifications, or other abnormalities. MM/MM tomosynthesis screening BI IMPRESSION: No mammographic evidence of malignancy. ASSESSMENT: BI-RADS BI-RADS 1 - Negative RECOMMENDATION: Routine annual mammography screening. 1 year F/U This examination should not preclude the clinical evaluation of a suspicious palpable abnormality. This patient's information was entered into a reminder system with a target due date for their next mammogram. Electronically signed by: Laurie Bartlett DO 04/11/2024 08:01 AM EST RP Dictated By: Laurie Bartlett DO Signed By: <Electronically signed by Laurie Bartlett DO in OV> 04/11/24 0801 DD/ 0900 TD/TT: 04/02/24 0917 Grout Machine Tender: us Patito WHEELER IMG BI PROCEDURES Edited Result - Final * ThinPrep Imaging Pap and HPV mRNA E6/E7 (12/20/2023 11:33 AM EDT) HPV nRNA E6/E7 Not Detected Not Detected [facility] Comment:Methodology: Transcr iption-Mediated AmplificationThis assay detects E6/E7 viral messenger RNA (mRNA) from 14high-risk HPV types (16,18,31,33,35,39,45,51,52,56,58,59,66,68).Cervical sources are required for HPV testing.If a vaginal source from a patient who has had atotal hysterectomy with removal of cervix wassubmitted, please contact the testing laboratoryfor alternative testing options.For additional information, please refer tohttp://education.[email or web address]/faq/PPO643u5(This link if provided for information/educational purposes only.)THIS TEST WAS PERFORMED AT:[employer] [address] [id number] JEFFERSON MD SOURCE: SEE NOTE [facility] Comment:Cervix Report Status: TNP [facility] Clinical Information: SEE NOTE [facility] Comment:None given LMP: SEE NOTE [facility] Comment:NONE GIVEN Prev. PAP: SEE NOTE [facility] Comment:NONE GIVEN Prev. BX: SEE NOTE [facility] Comment:NONE GIVEN Statement Of Adequacy: SEE NOTE [facility] Comment:Satisfactory for hector luation.Endocervical/transformation zone component absent. General Categorization: TNP [facility] Interpretation/Result: SEE NOTE [facility] Comment:Cytology Results: Ne gative for intraepitheliallesion or malignancy. Cytology Comment SEE NOTE [facility] Comment:This Pap test has be en evaluated with computerassisted technology. Software Quality Tester: SEE NOTE [facility] Comment:SILVA, CT(ASCP)CT scre ening location: [place] [address] Review Software Quality Tester: TNP [facility] Pathologist TNP [facility] PAP Infection [facility] See Note SEE NOTE [facility] Comment:EXPLANATORY NOTE:The Pap is a [...] AM EDT 12/20/2023 6:03 PM EDT Narrative [facility] - 12/22/2023 3:25 PM EDT SEE SCANNED RESULTS IN EMRCERVIX us Vee Monsalve [facility] PATHOLOGY ORDERABLES Final Result [facility] [address] [place] [phone] [phone] * (ABNORMAL) Lipid Panel, Standard (11/26/2022 9:55 AM EDT) Triglycerides 90 <150 mg/dL [facility] Comment:Desirable Triglyceri de: less than 150 mg/dLBorderline High Triglyceride 150-199 mg/dLHigh Triglyceride: 200-499 mg/dLVery High Triglyceride: greater than or equal to 5OO mg/dL Cholesterol 140 <200 mg/dL [facility] Comment:Desirable Cholestero l: less than 200 mg/dLBorderline High Cholesterol: 200-239 mg/dLHigh Cholesterol: greater than 239 mg/dL LDL Cholesterol Calculated 89 <100 mg/dL [facility] Comment:Desirable LDL: less than 100 mg/dLNear Optimal/Above Optimal LDL: 110- 129 mg/dLBorderline High LDL: 130-159 mg/dLHigh LDL: 160-189 mg/dLVery High LDL: greater than or equal to 190 mg/dL HDL Cholesterol 33(L) >40 mg/dL [facility] Comment:Desirable HDL: great er than 40 mg/dL Note: This HDL assay may give artificially low results in patients with liver disease. Blood Venous blood specimen / Unknown 11/26/2022 9:55 AM EDT 11/26/2022 9:55 AM EDT Patito De La O [facility] BLOOD ORDERABLES Final Resul t [facility] [address] [place] [address] [phone] * HEPATITIS C AB W/REFL TO HCV RNA, QN, PCR (07/01/2021 3:59 PM EDT) HEPATITIS C ANTIBODY NON-REACT LIBAN NON-REACT LIBAN [facility] INDEX 0.66 <1.00 [facility] Comment: HCV antibody was non-reactive. There is no laboratory evidence of HCV infection. In most cases, no further action is required. However, if recent HCV exposure is suspected, a test for HCV RNA (test code 76707) is suggested. For additional information please refer to http://education.[employer]/faq/FCM32m9 (This link is being provided for informational/ educational purposes only.) 07/01/2021 3:59 PM EDT Luanne Salinas ASSISTANT WOMEN'S [employer]OWING COACH HISTORICAL/NON ORDERABLE LABS Final Result Performing Organization Address City/[facility]/ZIP Co de Phone Number [facility] [address] * HIV 1/2 ANTIGEN/ANTIBODY,FOURTH GENERATION W/RFL (07/01/2021 3:59 PM EDT) HIV-1/2 ANTIGEN AND ANTIBODIES, 4TH GENERATION W/ REFLEX NON-REACT LIBAN NON-REACT LIBAN [facility] Comment: HIV-1 antigen and HIV-1/HIV-2 antibodies were not detected. There is no laboratory evidence of HIV infection. PLEASE NOTE: This information has been disclosed to you from records whose confidentiality may be protected by state law. If your state requires such protection, then the state law prohibits you from making any further disclosure of the information without the specific written consent of the person to whom it pertains, or as otherwise permitted by law. A general authorization for the release of medical or other information is NOT sufficient for this purpose. For additional information please refer to http://education.[employer]/faq/JVU951 (This link is being provided for informational/ educational purposes only.) The performance of this assay has not been clinically validated in patients less than 2 years old. 07/01/2021 3:59 PM EDT us Luanne Salinas ASSISTANT [employer]OM[employer]ING [employer] LAB BLOOD ORDERABLES Final Res ult [facility] Critical access hospital Any[address] from Last 3 Months or Most Recently Relevant to Health Maintenance Insurance [facility] [facility] MEDICAID STAND ADULT Care Teams Fur Vault Attendant Relationship Specialty Start Date End Date Patito De La O ANP [address] [place] [id number] PCP - General Family Medicine 10/13/22
--- OUTSIDE RECORDS SUMMARY | 2025-02-03 08:18 | XMS_ITS | Encounter Summary ---
Author Organization [employer] Address [address] [place] [address] [address] [address] Care Team Providers Care Media Relations Coordinator Name Role Phone Trudy Blanco Primary Care Provider Reema Gutierrez Primary Care Provider [phone] Encounter Details Date Type Department Care Team (Latest Contact Info) Description 07/26/2021 Abstract [facility] CONVERSIONS Dental, Provider, DDS Social History [...] 10:30 AM EST Clinical Support [facility] MEDICINE [address] [place] [address] 05/01/2025 12:45 PM EST Office Visit [facility] ADULT DENTAL [address] [place] [address] Halina Kingsley [address] [place] [address] documented as of this encounter Visit Diagnoses Not on filedocumented in this encounter Care Teams Media Relations Coordinator Relationship Specialty Start Date End Date Trudy Blanco FNP PCP - General Family Medicine 10/31/21 08/24/22 Reema Grant ANP [address] [place] [id number] PCP - General Family Medicine 10/13/22 documented as of this encounter
--- OUTSIDE RECORDS SUMMARY | 2025-02-03 08:18 | XMS_ITS | Encounter Summary ---
Author Organization [facility] Address [address] [place] [phone] Phone Care Team Providers Care Slip Dumper Name Role Phone Pcp, Unknown Primary Care Provider Unavailabl e Encounter Details Date Type Department Care Team (Late st Contact Info) Description 09/17/2019 Transcribe Orders Virtual Department [address] [place] [address] Noel Chavez MD [address] [facility], [address], [address] [place] [address] [email or web address] Exposure to SARS virus (Primary Dx) Social History Tobacco Use Types Packs/Day Years Used Date Smoking Tobacco: Never Assessed Comments Unknown Sex and Gender Information Value Date Recorded Sex Assigned at Female 06/22/2022 1:34 PM EDT Legal Sex Female 2:57 PM EDT Gender Identity Female 06/22/2022 1:34 PM EDT Sexual Orientation Not on file documented as of this encounter Plan of Treatment Not on file documented as of this encounter Visit Diagnoses Diagnosis Exposure to SARS virus- Primary Exposure to SARS-associated coronavirus documented in this encounter Additional Health Concerns Infection Onset Date Last Indicated Resolved Time CoV-Exposed Comment:Recent close contact 09/17/2019 09/17/2019 10/01/2019 1:26 AM EDT documented as of this encounter Care Teams Slip Dumper Relationship Specialty Start Date End Date Pcp, Unknown PCP - General 06/23/19 documented as of this encounter Additional Source Comments The information contained in this document represents components of the legal health record. It is not the complete legal health record.[facility]
--- OUTSIDE RECORDS SUMMARY | 2025-02-03 08:18 | XMS_ITS | Encounter Summary ---
Author Organization [employer] Address [address] [facility] 7t [place] [address] Care Team Providers Care Bench Scientist Name Role Phone Reema Grant LIAM Primary Care Provider [phone] Encounter Details Date Type Department Care Team ([facility] Contact Info) Description 12/19/2024 Results Follow-Up [facility] MEDICINE [address] [place] [address] Vee Monsalve CNM [address] [place] [address] [employer] Social History Tobacco Use Types Packs/Day Years [...] Q2 Not on file 12/12/2024 Comments Unknown Sex and Gender Information Value [...] Description 02/10/2025 10:30 AM EST Clinical Support [facility] MEDICINE [address] [place] [address] 05/01/2025 12:45 PM EST Office Visit [facility] ADULT DENTAL [address] [place] [address] Halina Kingsley [address] [place] [address] documented as of this encounter Visit Diagnoses Not on filedocumented in this encounter Additional Health Concerns Assessment Noted Time PHQ-9 Depression Total Score: 6 12/13/19 25 10:19 AM EDT documented as of this encounter Care Teams Bench Scientist Relationship Specialty Start Date End Date Reema Grant ANP [address] [place] [address] PCP - General Family Medicine 10/13/22 documented as of this encounter
--- OUTSIDE RECORDS SUMMARY | 2025-02-03 08:18 | XMS_ITS | Encounter Summary ---
Author Organization [employer] Address [address] [facility] 7t [place] [address] Care Team Providers Care All Source Intelligence Name Role Phone Francis Trudycande REICH Primary Care Provider Reema Gutierrez Primary Care Provider [phone] Reason for Visit * Reason Comments Med Change Request Encounter Details Date Type Department Care Team (Late st Contact Info) Description 03/14/2022 Refill [facility] [address] [place] [address] Glenda Burgess FNP Essential hypertension; Primary hypertension [...] Description 02/10/2025 10:30 AM EST Clinical Support [facility] [address] [place] [address] 05/01/2025 12:45 PM EST Office Visit [facility] ADULT DENTAL [address] [place] [address] Halina Kingsley [address] [place] [address] documented as of this encounter Visit Diagnoses Diagnosis Essential hypertension Unspecified essential hypertension Primary hypertension Unspecified essential hypertension documented in this encounter Care Teams All Source Intelligence Relationship Specialty Start Date End Date Trudy Blanco FNP PCP - General Family Medicine 10/31/21 08/24/22 Reema Grant ANP [address] [place] [address] PCP - General Family Medicine 10/13/22 documented as of this encounter
--- OUTSIDE RECORDS SUMMARY | 2025-02-03 08:18 | XMS_ITS | Encounter Summary ---
Author Organization [employer] Address [address] [facility] [address]t [place] [address] Care Team Providers Care Sql Analyst Name Role Phone Juanita Reema WHEELER Primary Care Provider [phone] Reason for Visit * Reason Onset Date Comments Med Refill 02/08/2024 Encounter Details Date Type Department Care Team ([facility] st Contact Info) Description 02/08/2024 Refill [facility] [address] [place] [address] Marshal Woody MD [address] [place], [place] [phone] Social History Tobacco Use Types Packs/Day Years [...] Description 02/10/2025 10:30 AM EST Clinical Support [facility] MED[facility] [address] [place] [address] 05/01/2025 12:45 PM EST Office Visit [facility] ADULT DENTAL [address] [place] [address] TeeteeHalina [address] [place] [address] documented as of this encounter Visit Diagnoses Not on filedocumented in this encounter Additional Health Concerns Assessment Noted Time PHQ-9 Depression Total Score: 7 12/01/19 24 9:38 AM EDT documented as of this encounter Care Teams Sql Analyst Relationship Specialty Start Date End Date Reema Grant ANP [address] [place] [address] PCP - General Family Medicine 10/13/22 documented as of this encounter
--- OUTSIDE RECORDS SUMMARY | 2025-02-03 08:18 | XMS_ITS | Encounter Summary ---
Author Organization [employer] Address [address] [facility] [address] [place] [address] Care Team Providers Care Youth Minister Name Role Phone Juanita Reema WHEELER Primary Care Provider [phone] Reason for Visit * Reason Onset Date Comments Med Refill 05/20/2024 Encounter Details Date Type Department Care Team ([facility] st Contact Info) Description 05/20/2024 Refill [facility] [address] [place], [place] [phone] Marshal Woody MD [address] [place], [place] [phone] Social History Tobacco Use Types Packs/Day Years [...] Description 02/10/2025 10:30 AM EST Clinical Support [facility] MED[facility]INE [address] [place] [address] 05/01/2025 12:45 PM EST Office Visit [facility] ADULT DENTAL [address] [place] [address] TeeteeHalina [address] [place] [address] documented as of this encounter Visit Diagnoses Not on filedocumented in this encounter Additional Health Concerns Assessment Noted Time PHQ-9 Depression Total Score: 7 12/01/19 24 9:38 AM EDT documented as of this encounter Care Teams Youth Minister Relationship Specialty Start Date End Date Reema Grant ANP [address] [place] [address] PCP - General Family Medicine 10/13/22 documented as of this encounter
--- OUTSIDE RECORDS SUMMARY | 2025-02-03 08:18 | XMS_ITS | Encounter Summary ---
Author Organization [employer] Address [address] [facility] 7[address] [place] [address] Care Team Providers Care Charcoal Unloader Name Role Phone Juanita Reema WHEELER Primary Care Provider [phone] Encounter Details Date Type Department Care Team ([facility] st Contact Info) Description 12/13/2024 Results Follow-Up [facility] MEDICINE [address] [place] [address] Vee Monsalve CNM [address] [place] [address] Bacterial Vaginosis Social History Tobacco Use Types Packs/Day Years [...] Description 02/10/2025 10:30 AM EST Clinical Support [facility] MED[facility] [address] [place] [address] 05/01/2025 12:45 PM EST Office Visit [facility] ADULT DENTAL [address] [place] [address] Halina Kingsley [address] [place] [address] documented as of this encounter Visit Diagnoses Not on filedocumented in this encounter Additional Health Concerns Assessment Noted Time PHQ-9 Depression Total Score: 6 12/13/19 25 10:19 AM EDT documented as of this encounter Care Teams Charcoal Unloader Relationship Specialty Start Date End Date Reema Grant ANP [address] [place] [address] PCP - General Family Medicine 10/13/22 documented as of this encounter
[2025-02-03 12:06] LABS: Alanine Aminotransferase 16 U/L (0-31); Albumin Level 4.4 g/dL (3.5-5.0); Alkaline Phosphatase 120 U/L (39-117); Anion Gap 12 (12-20); Aspartate Amino Transferase 27 U/L (5-31); Blood Urea Nitrogen 13 mg/dL (9-16); Calcium 9.6 mg/dL (8.4-10.2); Carbon Dioxide 25 mmol/L (22-29); Chloride 108 mmol/L (96-108); Cholesterol 139 mg/dL (<200); Estimated Glomerular Filt Rate > 60; HDL Cholesterol 31 mg/dL (>40); Potassium 3.8 mmol/L (3.3-5.1); Sodium 141 mmol/L (135-145); Total Protein 7.7 g/dL (6.5-8.0); Triglycerides 186 mg/dL (<150)
[2025-02-03 12:36] LABS: HBS Num1 27.40 mIU/mL (0-7.99); HBc Num1 0.11 S/CO (0.00-0.79); HBsAGNum1 0.32 S/CO (0.00-0.99); Hepatitis B Surface Antigen Negative (Negative); ~Hepatitis B Surface Antibody REACTIVE (Nonreactive)
== END 2025-02-03 08:09 | disposition home or self-care (01) ==
LOC: HO.HHCL 08:08
PROVIDERS: PCP Nurse Practitioner Primary Care; Visit Provider Nurse Practitioner Primary Care
DX: Z11.59 Encounter for screening for other viral diseases (principal); E66.813 Obesity, class 3; I10 Essential (primary) hypertension; Z68.42 Body mass index [BMI] 45.0-49.9, adult
CPT/HCPCS: 36415; 80053; 80061; 83036; 86704; 86706; 87340